=== PATIENT | male | born 1990 | race Caucasian/White ===

== ENCOUNTER 2016-04-27 19:19 | Emergency (ER) | payer OTHER, MEDICARE, MEDICAID ==
--- NOTE | 2016-04-27 19:34 | ER Document Report ---
ED Medical Screen (RME) - General Chief Complaint: Psych Problem Stated Complaint: PSYCH EVAL Time seen by provider: 19:30 Mode of Arrival: Ambulatory Information source: Patient Notes: 25 yo male presents to ed for possible overdose of drugs while in detention. Patient states he took ice and heroine. TRAVEL OUTSIDE OF THE [place] IN LAST 30 DAYS: No - HPI Onset: This afternoon - 5pm swallowed his drugs when police arrested him Onset/Duration: Gradual Quality of pain: No pain Severity: None Pain Level: Denies Associated Symptoms: None Exacerbated by: Denies Relieved by: Denies Similar symptoms previously: Yes Recently seen / treated by doctor: No - Related Data Smoking: Cigarettes - 3-4 Frequency of alcohol use: None Drug Abuse: Heroin, Methamphetamine Allergies/Adverse Reactions: cephalexin monohydrate [From Keflex] Allergy (Verified 04/27/16 19:27) Sulfa (Sulfonamide Antibiotics) Allergy (Verified 04/27/16 19:27) tramadol HCl [From Ultram] Adverse Reaction (Verified 04/27/16 19:27) SEIZURE Past Medical History Renal/ Medical History: Reports: Hx Hydrocele, Hx Kidney Stones GI Medical History: Reports: Hx Hepatitis Musculoskeltal Medical History: Reports Hx Musculoskeletal Trauma Psychiatric Medical History: Reports: Hx Attention Deficit Hyperactivity Disorder, Hx Bipolar Disorder, Hx Depression, Hx Schizophrenia Infectious Medical History: Reports: Hx Hepatitis Past Surgical History: Reports: Hx Testicular Surgery - right hydrocele - Immunizations Immunizations up to date: Yes Hx Diphtheria, Pertussis, Tetanus Vaccination: Yes
[2016-04-27] MEDS ORDERED: HALOPERIDOL DECANOATE INJ 100 MG/1 ML VIAL IM PRN (19:39)
[2016-04-27] MEDS ORDERED: LORAZEPAM INJ 2 MG/1 ML VIAL IM ONE (19:40)
[2016-04-27] MEDS ORDERED: LORAZEPAM INJ 2 MG/1 ML VIAL IV ONE (19:44)
--- NOTE | 2016-04-27 19:44 | ER Document Report ---
ED General <KASSANDRA WALKER - Last Filed: 04/28/16 07:26> - General Mode of Arrival: Ambulatory TRAVEL OUTSIDE OF THE [place] IN LAST 30 DAYS: No <COBY NELSON - Last Filed: 04/28/16 10:53> - General Chief Complaint: Overdose Stated Complaint: OVERDOSE Notes: The patient is a 25-year-old male, past medical history polysubstance abuse, schizophrenia, presents by police after he was found to be exhibiting bizarre behavior. He says he ingested meth and heroin. He did not want to kill himself. Patient is agitated and unable to provide any additional history. (COBY NELSON) - Related Data Allergies/Adverse Reactions: cephalexin monohydrate [From Keflex] Allergy (Verified 04/27/16 19:27) Sulfa (Sulfonamide Antibiotics) Allergy (Verified 04/27/16 19:27) tramadol HCl [From Ultram] Adverse Reaction (Verified 04/27/16 19:27) SEIZURE Past Medical History - General Information source: Patient - Social History Smoking Status: Current Every Day Smoker Frequency of alcohol use: None Drug Abuse: Heroin, Methamphetamine Family History: Reviewed & Not Pertinent, CAD, CVA, DM, Hypertension Patient has suicidal ideation: No Patient has homicidal ideation: No Renal/ Medical History: Reports: Hx Hydrocele, Hx Kidney Stones GI Medical History: Reports: Hx Hepatitis Musculoskeltal Medical History: Reports Hx Musculoskeletal Trauma Psychiatric Medical History: Reports: Hx Attention Deficit Hyperactivity Disorder, Hx Bipolar Disorder, Hx Depression, Hx Schizophrenia Infectious Medical History: Reports: Hx Hepatitis Past Surgical History: Reports: Hx Testicular Surgery - right hydrocele - Immunizations Immunizations up to date: Yes Hx Diphtheria, Pertussis, Tetanus Vaccination: Yes <COBY NELSON - Last Filed: 04/28/16 10:53> Physical Exam <KASSANDRA WALKER - Last Filed: 04/28/16 07:26> <COBY NELSON - Last Filed: 04/28/16 10:53> - Vital signs Vitals: Resp 28 H 04/27/16 19:40 (KASSANDRA WALKER) - Notes Notes: PHYSICAL EXAMINATION: GENERAL: Agitated. Moving all over the bed. HEAD: Atraumatic, normocephalic. EYES: Pupils equal round and reactive to light, extraocular movements intact, sclera anicteric, conjunctiva are normal. ENT: nares patent, oropharynx clear without exudates. Moist mucous membranes. NECK: Normal range of motion, supple without lymphadenopathy LUNGS: Breath sounds clear to auscultation bilaterally and equal. No wheezes rales or rhonchi. HEART: Regular rate and rhythm without murmurs ABDOMEN: Soft, nontender, normoactive bowel sounds. No guarding, no rebound. No masses appreciated. EXTREMITIES: Normal range of motion, no pitting or edema. No cyanosis. NEUROLOGICAL: Cranial nerves grossly intact. Normal speech, normal gait. Normal sensory, motor, and reflex exams. PSYCH: Agitated. Redirectable. SKIN: Warm, Dry, normal turgor, no rashes or lesions noted. (COBY NELSON) Course - Laboratory Result Diagrams: 04/27/16 20:42 04/27/16 20:42 <KASSANDRA WALKER - Last Filed: 04/28/16 07:26> - Laboratory Result Diagrams: 04/27/16 20:42 04/27/16 20:42 - EKG Interpretation by Ia EKG shows normal: Sinus rhythm, [place], Intervals - Prolonged QTc at 473, QRS Complexes - Transfer of Care Care transferred to following provider: Dr. Baron at 21:30. <COBY NELSON - Last Filed: 04/28/16 10:53> - Re-evaluation Re-evalutation: Patient says he only had meth and heroin. He says he is not suicidal. He is acting sympathomimetic. After Ativan, patient has calm down his tachycardia resolved. Will watch until sober and then discharge to police custody. (COBY NELSON) - Vital Signs Vital signs: Temp Pulse Resp BP Pulse Ox 98.0 F 85 16 124/70 95 04/28/16 08:20 04/28/16 08:20 04/28/16 08:20 04/28/16 08:20 04/28/16 08:20 (KASSANDRA WALKER) - Laboratory Laboratory results interpreted by dc: 04/27/16 04/27/16 04/28/16 20:42 20:42 07:23 WBC 11.2 H Calcium 10.3 H AST 125 H ALT 355 H Albumin 5.1 H Urine Ketones 20 H Salicylates < 1.0 L Acetaminophen < 10 L (KASSANDRA WALKER) Discharge <KASSANDRA WALKER - Last Filed: 04/28/16 07:26> <COBY NELSON - Last Filed: 04/28/16 10:53> - Discharge Clinical Impression: Heroin abuse, Methamphetamine abuse Condition: Good Disposition: HOME, SELF-CARE Additional Instructions: NARCOTIC / OPIOD ABUSE: Narcotics and opiods are pain-relieving drugs that are often abused. They are addicting. Narcotics cause euphoria, but it often takes increasing amounts to "feel good" and avoid withdrawal symptoms. Overdose of narcotics causes small pupils, coma, and decreased breathing. It's a common cause of . Purity of street narcotics is unpredictable. Injection of narcotics is risky for abscesses, endocarditis (heart infection), pneumonia, and AIDS. Withdrawal from narcotics causes goose bumps, watery mouth, sweating, nasal congestion, muscle aches, abdominal cramps, vomiting, and diarrhea. There 's often restlessness and confusion. Treatment programs are available, but you must make the decision to quit. Medication (such as clonidine) can be prescribed to control the symptoms of withdrawal. AMPHETAMINE / METHAMPHETAMINE ABUSE: Amphetamines are addicting stimulants. Amphetamines overstimulate the nervous system and give a false feeling of power and mastery. These drugs may be obtained as prescription pills for weight loss, narcolepsy, or attention- deficit disorder. More often they're bought as an illegal street drug, methamphetamine (crank, crystal, speed). Using amphetamines repeatedly can lead to serious medical problems including malnutrition, severe depression, and paranoia. It can take increasing amounts to feel good. Eventually, there will be a "burn out." When you go off amphetamines there is a period of depression that may last for weeks or even months. High doses of amphetamines can cause seizures, confusion, hallucinations, delusions, high blood pressure, muscle damage, heart damage, or sudden . Many times these deadly complications occur even with "normal" doses. Injection of amphetamines is risky for developing abscesses, endocarditis ( heart infection), pneumonia, and AIDS. Withdrawal from amphetamines often causes anxiety, depression, and drug cravings. Some users become paranoid and psychotic. There may be cramps, nausea , and vomiting. Many treatment programs are available, but you must make the decision to quit. Medication can be prescribed to control the symptoms of amphetamine toxicity (beta blockers or benzodiazepines). Withdrawal symptoms may require tranquilizers. INSTRUCTIONS FOR HOME CARE FOLLOWING DRUG OVERDOSAGE: The doctor feels it's safe for you to go home. You will need to be observed. If charcoal and a laxative was given to you, expect some loose black stools soon. Take no medications unless approved by a physician, including alcohol. If drowsy, lie on your stomach or side for sleeping to avoid aspiration if vomiting occurs. Take only liquids by mouth until there is no more nausea. FOR THE OBSERVER: Observe the patient for the next 24 hours and call or go to the hospital if any of the following are noted: prolonged or repeated vomiting, difficulty in arousing, convulsions (seizures or fits), fever, persistent cough, breathing that is too slow or too rapid, or confused or bizarre behavior. If a counselling visit has been arranged, make sure the patient attends. Call the physician or poison control if you have questions. FOLLOW-UP CARE: If you have been referred to a physician for follow-up care, call the physician s office for an appointment as you were instructed or within the next two days. If you experience worsening or a significant change in your symptoms, notify the physician immediately or return to the Emergency Department at any time for re-evaluation. Referrals: CASIMIRO LINDQUIST MD [Primary Care Provider] - Follow up as needed
[2016-04-27 20:55] LABS: ABSOLUTE EOSINOPHILS # (AUTO) 0.1 10^3/uL (0.0-0.6); ABSOLUTE LYMPHOCYTES (AUTO) 2.4 10^3/uL (0.5-4.7); ABSOLUTE MONOCYTES (AUTO) 1.2 10^3/uL (0.1-1.4); ABSOLUTE NEUT (AUTO) 7.5 10^3/uL (1.7-8.2); BASOPHILS % (AUTO) 0.4 % (0-2); HEMATOCRIT 45.8 % (37.9-51.0); HGB HCT DIFFERENCE 2.2; LYMPHOCYTES % (AUTO) 21.3 % (13-45); MEAN CORPUSCULAR HEMOGLOBIN 31.3 pg (27.0-33.4); MEAN CORPUSCULAR VOLUME 89 fl (80-97); MONOCYTES % (AUTO) 10.6 % (3-13); RED BLOOD COUNT 5.12 10^6/uL (4.35-5.55); RED CELL DISTRIBUTION WIDTH 12.6 % (11.5-14.0); SEGMENTED NEUTROPHILS % (AUTO) 66.7 % (42-78); WHITE BLOOD COUNT 11.2 10^3/uL (4.0-10.5)
[2016-04-27 21:11] LABS: ALANINE AMINOTRANSFERASE 355 U/L (21-72); ALBUMIN 5.1 g/dL (3.5-5.0); ALKALINE PHOSPHATASE 82 U/L (38-126); ANION GAP 16 (5-19); ASPARTATE AMINO TRANSFERASE 125 U/L (17-59); BILIRUBIN,TOTAL 1.2 mg/dL (0.2-1.3); BLOOD UREA NITROGEN 16 mg/dL (7-20); CALCIUM 10.3 mg/dL (8.4-10.2); CARBON DIOXIDE 26 mmol/L (22-30); CHLORIDE 100 mmol/L (98-107); CREATININE RESULT 0.89 mg/dL (0.52-1.25); GLUCOSE 78 mg/dL (75-110); POTASSIUM 3.9 mmol/L (3.6-5.0); SODIUM 141.5 mmol/L (137-145); TOTAL PROTEIN 8.1 g/dL (6.3-8.2)
[2016-04-27] MEDS ORDERED: NORMAL SALINE 1000 ML 1,000 ML IV ONE (21:16)
[2016-04-27 21:18] LABS: ALCOHOL < 10 mg/dL (NONE DETECTED)
--- NOTE | 2016-04-28 05:10 | EKG REPORT ---
SEVERITY:- ABNORMAL ECG - SINUS RHYTHM RIGHT ATRIAL ABNORMALITY BORDERLINE PROLONGED QT INTERVAL : Confirmed by: Fito Bowers 28-Apr-2016 05:09:45
[2016-04-28 07:49] LABS: APPEARANCE,URINE CLEAR; BILIRUBIN,URINE NEGATIVE (NEGATIVE); GLUCOSE, URINE NEGATIVE (NEGATIVE); KETONES,URINE 20 mg/dL (NEGATIVE); LEUKOCYTE ESTERASE,URINE NEGATIVE (NEGATIVE); NITRITE,URINE NEGATIVE (NEGATIVE); PROTEIN,URINE NEGATIVE (NEGATIVE); URINE SPECIFIC GRAVITY 1.018; UROBILINOGEN,URINE NEGATIVE mg/dL (<2.0)
[2016-04-28 08:04] LABS: URINE BARBITURATES SCREEN NEGATIVE; URINE METHADONE SCREEN NEGATIVE; URINE PHENCYCLIDINE SCREEN NEGATIVE
[2016-04-28 08:28] VITALS: BP 124/70
== END 2016-04-28 08:23 | disposition home or self-care (01) ==
LOC: ER 19:19
DX: F15.10 Other stimulant abuse, uncomplicated (principal); F11.10 Opioid abuse, uncomplicated; F17.200 Nicotine dependence, unspecified, uncomplicated; Z88.1 Allergy status to other antibiotic agents; Z88.2 Allergy status to sulfonamides
CPT/HCPCS: 93005; 99285; 96361; 96374; 36415; 80307 ×4; 85025; 80053; 81001; 93010; J2060; J7030

== ENCOUNTER 2016-11-01 17:52 | Emergency (ER) | payer MEDICARE, OTHER, MEDICAID ==
[2016-11-01] MEDS ORDERED: LORAZEPAM INJ 2 MG/1 ML VIAL IV ONE ×2 (18:07→19:19)
[2016-11-01] MEDS: NORMAL SALINE 1000 ML 1,000 ML IV PRN ×3 (18:21→22:53)
--- NOTE | 2016-11-01 18:40 | RADIOLOGY REPORT (SQ) ---
EXAM DESCRIPTION: KUB/ABDOMEN (SINGLE VIEW) COMPLETED DATE/TIME: 11/01/2016 6:28 pm REASON FOR STUDY: possible body stuffing COMPARISON: None. NUMBER OF VIEWS: One view. TECHNIQUE: Supine radiographic image of the abdomen acquired. LIMITATIONS: None. FINDINGS: BOWEL GAS PATTERN: Normal bowel gas pattern. No dilated loops. CALCIFICATIONS: No suspicious calcifications. SOFT TISSUES: No gross mass or suggestion of organomegaly. HARDWARE: None in the abdomen. BONES: No acute fracture. No worrisome bone lesions. OTHER: No other significant finding. IMPRESSION: NO RADIOGRAPHIC EVIDENCE FOR ACUTE ABDOMINAL DISEASE. TECHNICAL DOCUMENTATION: JOB ID: [id number] [employer]- All Rights Reserved
[2016-11-01 18:44] LABS: HEMATOCRIT 50.7 % (37.9-51.0); HEMOGLOBIN 16.7 g/dL (13.5-17.0); HGB HCT DIFFERENCE -0.6; MEAN CORPUSCULAR HEMOGLOBIN 30.5 pg (27.0-33.4); MEAN CORPUSCULAR HGB CONC 32.9 g/dL (32.0-36.0); MEAN CORPUSCULAR VOLUME 93 fl (80-97); RED BLOOD COUNT 5.47 10^6/uL (4.35-5.55); RED CELL DISTRIBUTION WIDTH 13.2 % (11.5-14.0); WHITE BLOOD COUNT 28.4 10^3/uL (4.0-10.5)
[2016-11-01 19:00] LABS: ALANINE AMINOTRANSFERASE 72 U/L (21-72); ALKALINE PHOSPHATASE 99 U/L (38-126); ANION GAP 19 (5-19); ASPARTATE AMINO TRANSFERASE 71 U/L (17-59); BAND NEUTROPHILS % (MANUAL) 3 % (3-5); BASOPHILS % (MANUAL) 0 % (0-2); BILIRUBIN,DIRECT 0.5 mg/dL (0.0-0.4); BILIRUBIN,TOTAL 1.5 mg/dL (0.2-1.3); BLOOD UREA NITROGEN 54 mg/dL (7-20); CALCIUM 9.1 mg/dL (8.4-10.2); CARBON DIOXIDE 19 mmol/L (22-30); CHLORIDE 105 mmol/L (98-107); CREATININE RESULT 3.27 mg/dL (0.52-1.25); EOSINOPHILS % (MANUAL) 0 % (0-6); GLUCOSE 83 mg/dL (75-110); LYMPHOCYTES % (MANUAL) 5 % (13-45); POTASSIUM 4.2 mmol/L (3.6-5.0); TOTAL CELLS COUNTED 100; TOTAL PROTEIN 9.2 g/dL (6.3-8.2)
[2016-11-01 19:04] LABS: RBC MORPHOLOGY COMMENT NORMO-CYTIC/CHROMIC; TOXIC GRANULATION SLIGHT
[2016-11-01 19:05] LABS: ALCOHOL < 10 mg/dL (NONE DETECTED)
[2016-11-01] MEDS ORDERED: ZIPRASIDONE MESYLATE INJ/PF 20 MG SDV IM ONE (19:56)
[2016-11-01 20:11] LABS: ADD ON TESTING BLD IN LAB ACKNOWLEDGE
[2016-11-01 20:24] LABS: CREATINE KINASE 978 U/L (55-170)
[2016-11-01] MEDS ORDERED: MORPHINE SULFATE 10 MG/ML INJ IV ONE (20:36)
--- NOTE | 2016-11-01 21:18 | RADIOLOGY REPORT (SQ) ---
EXAM DESCRIPTION: SHOULDER RIGHT 2 OR MORE VIEWS COMPLETED DATE/TIME: 11/01/2016 8:51 pm REASON FOR STUDY: right shoulder pain COMPARISON: None. NUMBER OF VIEWS: Two views. TECHNIQUE: Internal and external rotation images acquired of the right shoulder. LIMITATIONS: None. FINDINGS: MINERALIZATION: Normal. BONES: No acute fracture or dislocation. No worrisome bone lesions. JOINTS: No dislocation. VISUALIZED LUNGS AND RIBS: No pneumothorax. No rib fracture. SOFT TISSUES: No radiopaque foreign body. OTHER: No other significant finding. IMPRESSION: NEGATIVE STUDY OF THE RIGHT SHOULDER. NO RADIOGRAPHIC EVIDENCE OF ACUTE INJURY. TECHNICAL DOCUMENTATION: JOB ID: [id number] [employer]- All Rights Reserved
--- NOTE | 2016-11-01 22:03 | ER Document Report ---
ED Substance Abuse / Acc. OD - General Chief Complaint: Possible Overdose Stated Complaint: POSSIBLE DRUG INGESTION Time Seen by Provider: 11/01/16 18:05 Notes: The patient is a 26-year-old male, past medical history polysubstance abuse, presents by EMS after he was found to be flailing around outside. He keeps changing his stories and told 1 of the EMS that he swallowed a bag of drugs. He denies swallowing any drugs to me and is only complaining about right shoulder pain. EMS provided him with 50 mg IV Benadryl and 5 mg IV Versed. Pt is very agitated on arrival and flailing around the bed. TRAVEL OUTSIDE OF THE [place] IN LAST 30 DAYS: No - Related Data Allergies/Adverse Reactions: cephalexin monohydrate [From Keflex] Allergy (Verified 11/01/16 19:06) Sulfa (Sulfonamide Antibiotics) Allergy (Verified 11/01/16 19:06) tramadol HCl [From [employer]] Adverse Reaction (Verified 11/01/16 19:06) SEIZURE Past Medical History - General Information source: Patient - Social History Smoking Status: Current Every Day Smoker Chew tobacco use (# tins/day): No Drug Abuse: Cocaine, Heroin, Marijuana, Methamphetamine Family History: Reviewed & Not Pertinent, CAD, CVA, DM, Hypertension Renal/ Medical History: Reports: Hx Hydrocele, Hx Kidney Stones GI Medical History: Reports: Hx Hepatitis Musculoskeltal Medical History: Reports Hx Musculoskeletal Trauma Psychiatric Medical History: Reports: Hx Attention Deficit Hyperactivity Disorder, Hx Bipolar Disorder, Hx Depression, Hx Schizophrenia Infectious Medical History: Reports: Hx Hepatitis Past Surgical History: Reports: Hx Testicular Surgery - right hydrocele - Immunizations Immunizations up to date: Yes Hx Diphtheria, Pertussis, Tetanus Vaccination: Yes Review of Systems - Review of Systems Notes: REVIEW OF SYSTEMS: CONSTITUTIONAL: -fevers, -chills EENT: -eye pain, -difficulty swallowing, -nasal congestion CARDIOVASCULAR:-chest pain, -syncope. RESPIRATORY: -cough, -SOB GASTROINTESTINAL: -abdominal pain, - nausea, -vomiting, -diarrhea GENITOURINARY: -dysuria, -hematuria MUSCULOSKELETAL: +right shoulder pain, -back pain, -neck pain SKIN: -rash or skin lesions. HEMATOLOGIC: -easy bruising or bleeding. LYMPHATIC: -swollen, enlarged glands. NEUROLOGICAL: -altered mental status or loss of consciousness, -headache, - neurologic symptoms PSYCHIATRIC: -anxiety, -depression, +drug abuse ALL OTHER SYSTEMS REVIEWED AND NEGATIVE. Physical Exam - Vital signs Vitals: Resp Pulse Ox 29 H 97 11/01/16 18:36 11/01/16 18:36 - Notes Notes: PHYSICAL EXAMINATION: GENERAL: Agitated, flailing around the bed HEAD: Atraumatic, normocephalic. EYES: Dilated pupils, extraocular movements intact, sclera anicteric, conjunctiva are normal. ENT: nares patent, oropharynx clear without exudates. Moist mucous membranes. NECK: Normal range of motion, supple without lymphadenopathy LUNGS: Breath sounds clear to auscultation bilaterally and equal. No wheezes rales or rhonchi. HEART: Tachycardia ABDOMEN: Soft, nontender, normoactive bowel sounds. No guarding, no rebound. No masses appreciated. EXTREMITIES: Normal range of motion, no pitting or edema. No cyanosis. NEUROLOGICAL: Jerky movements, no focal deficits PSYCH: Agitated, denies HI and SI. SKIN: Warm, Dry, normal turgor, no rashes or lesions noted. Course - Re-evaluation Re-evalutation: 11/02/16 03:18 Pt with evidence of methamphetamine, benzo and THC abuse. On lab work, he had a leukocytosis and BREANNA. The leukocytosis is most likely reactive from his severe agitation and agitated delirium. His leukocytosis and creatinine improved on recheck after he was calm. Pt will be discharged home when he has a steady gait with [facility] referral. Denies suicidal or homicidal ideation. Patient counseled about drug abuse. - Vital Signs Vital signs: Temp Pulse Resp BP Pulse Ox 98.6 F 16 107/66 100 11/01/16 23:00 11/02/16 03:00 11/02/16 03:00 11/02/16 03:00 - Laboratory Result Diagrams: 11/02/16 02:52 11/02/16 02:52 Laboratory results interpreted by me: 11/01/16 11/01/16 11/01/16 18:30 18:30 18:30 WBC 28.4 H RBC Hgb Seg Neuts % (Manual) 86 H Lymphocytes % (Manual) 5 L Absolute Neutrophils Abs Neuts (Manual) 25.3 H Absolute Monocytes Abs Monocytes (Manual) 1.7 H Chloride Carbon Dioxide 19 L BUN 54 H Creatinine 3.27 H Est GFR ( Amer) 28 L Est GFR (Non-Af Amer) 23 L Calcium Total Bilirubin 1.5 H Direct Bilirubin 0.5 H AST 71 H Creatine Kinase 978 H Total Protein 9.2 H Albumin Urine Protein Urine Ketones Urine Blood Salicylates < 1.0 L Acetaminophen < 10 L 11/02/16 11/02/16 11/02/16 01:47 02:52 02:52 WBC 17.2 H RBC 4.30 L Hgb 13.2 L D Seg Neuts % (Manual) Lymphocytes % (Manual) Absolute Neutrophils 13.3 H Abs Neuts (Manual) Absolute Monocytes 1.5 H Abs Monocytes (Manual) Chloride 118 H Carbon Dioxide 14 L BUN 33 H D Creatinine 1.31 H Est GFR ( Amer) Est GFR (Non-Af Amer) Calcium 7.3 L Total Bilirubin Direct Bilirubin AST Creatine Kinase 831 H Total Protein 5.6 L Albumin 2.8 L Urine Protein 30 H Urine Ketones 80 H Urine Blood MODERATE H Salicylates Acetaminophen Critical Care Note - Critical Care Note Total time excluding time spent on procedures (mins): 35 Discharge - Discharge Clinical Impression: Polysubstance abuse, Agitation, BREANNA (acute kidney injury) Rhabdomyolysis Qualifiers: Rhabdomyolysis type: traumatic Encounter type: initial encounter Qualified Code (s): T79.6XXA - Traumatic ischemia of muscle, initial encounter Leukocytosis Qualifiers: Leukocytosis type: unspecified Qualified Code(s): D72.829 - Elevated white blood cell count, unspecified Condition: Stable Disposition: HOME, SELF-CARE Additional Instructions: AMPHETAMINE / METHAMPHETAMINE ABUSE: Amphetamines are addicting stimulants. Amphetamines overstimulate the nervous system and give a false feeling of power and mastery. These drugs may be obtained as prescription pills for weight loss, narcolepsy, or attention- deficit disorder. More often they're bought as an illegal street drug, methamphetamine (crank, crystal, speed). Using amphetamines repeatedly can lead to serious medical problems including malnutrition, severe depression, and paranoia. It can take increasing amounts to feel good. Eventually, there will be a "burn out." When you go off amphetamines there is a period of depression that may last for weeks or even months. High doses of amphetamines can cause seizures, confusion, hallucinations, delusions, high blood pressure, muscle damage, heart damage, or sudden . Many times these deadly complications occur even with "normal" doses. Injection of amphetamines is risky for developing abscesses, endocarditis ( heart infection), pneumonia, and AIDS. Withdrawal from amphetamines often causes anxiety, depression, and drug cravings. Some users become paranoid and psychotic. There may be cramps, nausea , and vomiting. Many treatment programs are available, but you must make the decision to quit. Medication can be prescribed to control the symptoms of amphetamine toxicity (beta blockers or benzodiazepines). Withdrawal symptoms may require tranquilizers. OVERDOSE / INGESTION: You have taken more medication than you should have. After your evaluation and care, it is felt that your overdose is not likely to be harmful or of any significant consequences to you and you are being discharged. In the future, you should be careful not to take more medications than what is prescribed for you. Although your overdose does not seem to be of any danger to you at this time, if you develop any unusual or unexpected symptoms after your discharge, you should return to the Emergency Department immediately for re-evaluation. INSTRUCTIONS FOR HOME CARE FOLLOWING DRUG OVERDOSAGE: The doctor feels it's safe for you to go home. You will need to be observed. If charcoal and a laxative was given to you, expect some loose black stools soon. Take no medications unless approved by a physician, including alcohol. If drowsy, lie on your stomach or side for sleeping to avoid aspiration if vomiting occurs. Take only liquids by mouth until there is no more nausea. FOR THE OBSERVER: Observe the patient for the next 24 hours and call or go to the hospital if any of the following are noted: prolonged or repeated vomiting, difficulty in arousing, convulsions (seizures or fits), fever, persistent cough, breathing that is too slow or too rapid, or confused or bizarre behavior. If a counselling visit has been arranged, make sure the patient attends. Call the physician or poison control if you have questions. FOLLOW-UP CARE: If you have been referred to a physician for follow-up care, call the physician s office for an appointment as you were instructed or within the next two days. If you experience worsening or a significant change in your symptoms, notify the physician immediately or return to the Emergency Department at any time for re-evaluation. Referrals: [facility] [Outside] - Follow up as needed
[2016-11-02] MEDS: NORMAL SALINE 1000 ML 1,000 ML IV PRN ×2 (01:47→02:33)
[2016-11-02] MEDS ORDERED: NORMAL SALINE 1000 ML 1,000 ML IV PRN (02:10)
[2016-11-02 02:30] LABS: APPEARANCE,URINE SLIGHTLY-CLOUDY; BILIRUBIN,URINE NEGATIVE (NEGATIVE); GLUCOSE, URINE NEGATIVE (NEGATIVE); KETONES,URINE 80 mg/dL (NEGATIVE); LEUKOCYTE ESTERASE,URINE NEGATIVE (NEGATIVE); NITRITE,URINE NEGATIVE (NEGATIVE); PROTEIN,URINE 30 mg/dL (NEGATIVE); URINE SPECIFIC GRAVITY 1.018; UROBILINOGEN,URINE NEGATIVE mg/dL (<2.0)
[2016-11-02 02:48] LABS: URINE BARBITURATES SCREEN NEGATIVE; URINE METHADONE SCREEN NEGATIVE; URINE OPIATES LOW NEGATIVE; URINE PHENCYCLIDINE SCREEN NEGATIVE
[2016-11-02 02:59] LABS: ABSOLUTE BASOPHILS # (AUTO) 0.1 10^3/uL (0.0-0.2); ABSOLUTE EOSINOPHILS # (AUTO) 0.1 10^3/uL (0.0-0.6); ABSOLUTE LYMPHOCYTES (AUTO) 2.2 10^3/uL (0.5-4.7); ABSOLUTE MONOCYTES (AUTO) 1.5 10^3/uL (0.1-1.4); ABSOLUTE NEUT (AUTO) 13.3 10^3/uL (1.7-8.2); BASOPHILS % (AUTO) 0.7 % (0-2); EOSINOPHILS % (AUTO) 0.4 % (0-6); HGB HCT DIFFERENCE -0.4; MEAN CORPUSCULAR HEMOGLOBIN 30.7 pg (27.0-33.4); MEAN CORPUSCULAR VOLUME 93 fl (80-97); MONOCYTES % (AUTO) 8.9 % (3-13); RED CELL DISTRIBUTION WIDTH 13.3 % (11.5-14.0); WHITE BLOOD COUNT 17.2 10^3/uL (4.0-10.5)
[2016-11-02 03:08] LABS: HEMOGLOBIN 13.2 g/dL (13.5-17.0)
[2016-11-02 03:16] LABS: ALANINE AMINOTRANSFERASE 63 U/L (21-72); ALBUMIN 2.8 g/dL (3.5-5.0); ALKALINE PHOSPHATASE 53 U/L (38-126); ANION GAP 9 (5-19); ASPARTATE AMINO TRANSFERASE 42 U/L (17-59); BILIRUBIN,DIRECT 0.2 mg/dL (0.0-0.4); CALCIUM 7.3 mg/dL (8.4-10.2); CARBON DIOXIDE 14 mmol/L (22-30); CHLORIDE 118 mmol/L (98-107); CREATINE KINASE 831 U/L (55-170); CREATININE RESULT 1.31 mg/dL (0.52-1.25); GLUCOSE 85 mg/dL (75-110); POTASSIUM 4.5 mmol/L (3.6-5.0); SODIUM 141.3 mmol/L (137-145); TOTAL PROTEIN 5.6 g/dL (6.3-8.2)
[2016-11-02 03:30] LABS: BLOOD UREA NITROGEN 33 mg/dL (7-20)
--- NOTE | 2016-11-02 08:13 | EKG REPORT ---
SEVERITY:- ABNORMAL ECG - SINUS TACHYCARDIA LEFT ATRIAL ABNORMALITY BORDERLINE T WAVE ABNORMALITIES PROLONGED QT INTERVAL : Confirmed by: Checo Hoffmann MD 02-Nov-2016 08:13:32
[2016-11-02 14:43] VITALS: BP 105/73
== END 2016-11-02 14:43 | disposition home or self-care (01) ==
LOC: ER 17:52
DX: F13.10 Sedative, hypnotic or anxiolytic abuse, uncomplicated (principal); F15.10 Other stimulant abuse, uncomplicated; F14.10 Cocaine abuse, uncomplicated; F12.10 Cannabis abuse, uncomplicated; F11.10 Opioid abuse, uncomplicated; T79.6XXA Traumatic ischemia of muscle, initial encounter; X58.XXXA Exposure to other specified factors, initial encounter; N17.9 Acute kidney failure, unspecified; D72.829 Elevated white blood cell count, unspecified; M25.511 Pain in right shoulder; R45.1 Restlessness and agitation; F17.200 Nicotine dependence, unspecified, uncomplicated; R00.0 Tachycardia, unspecified; Z88.1 Allergy status to other antibiotic agents; Z88.2 Allergy status to sulfonamides
CPT/HCPCS: 93005; 96376; 99291; 96372; 96374; 36415; 80307 ×5; 82550; 85025; 80053; 81001; 74000; 73030; 93010; G0480; J2060; J3486; J7030 ×2

== ENCOUNTER 2017-01-11 20:05 | Emergency (ER) | payer MEDICARE, MEDICAID ==
[2017-01-11] MEDS ORDERED: MIDAZOLAM 2 MG/2 ML INJ IM ONE (20:25)
[2017-01-11] MEDS ORDERED: HALOPERIDOL LACTATE INJ 5 MG/1 ML VIAL IM ONE (20:25)
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
[2017-01-11 20:30] VITALS: BP 131/96
[2017-01-11] MEDS ORDERED: IBUPROFEN 600 MG TABLET PO ONE (20:53)
--- NOTE | 2017-01-11 20:57 | RADIOLOGY REPORT (SQ) ---
EXAM DESCRIPTION: SHOULDER RIGHT 2 OR MORE VIEWS COMPLETED DATE/TIME: 01/11/2017 8:43 pm REASON FOR STUDY: right shoulder pain COMPARISON: 1916 NUMBER OF VIEWS: Three views. TECHNIQUE: Internal rotation, external rotation, and Y view images acquired of the right shoulder. LIMITATIONS: None. FINDINGS: MINERALIZATION: Normal. BONES: No acute fracture or dislocation. No worrisome bone lesions. JOINTS: No dislocation. VISUALIZED LUNGS AND RIBS: No pneumothorax. No rib fracture. SOFT TISSUES: No radiopaque foreign body. OTHER: No other significant finding. IMPRESSION: NEGATIVE STUDY OF THE RIGHT SHOULDER. NO RADIOGRAPHIC EVIDENCE OF ACUTE INJURY. TECHNICAL DOCUMENTATION: JOB ID: [id number] [employer]- All Rights Reserved
== END 2017-01-11 22:09 | disposition home or self-care (01) ==
LOC: ER 20:05
DX: M25.511 Pain in right shoulder (principal); F11.10 Opioid abuse, uncomplicated; F14.10 Cocaine abuse, uncomplicated; F15.10 Other stimulant abuse, uncomplicated; F17.200 Nicotine dependence, unspecified, uncomplicated; Z88.1 Allergy status to other antibiotic agents; Z88.2 Allergy status to sulfonamides
CPT/HCPCS: 99283; 73030; A9270

== ENCOUNTER 2017-07-22 19:51 | Emergency (ER) | payer MEDICARE, MEDICAID ==
[2017-07-22] MEDS ORDERED: NORMAL SALINE 1000 ML 1,000 ML IV PRN (21:05)
[2017-07-22 21:18] LABS: ABSOLUTE BASOPHILS # (AUTO) 0.1 10^3/uL (0.0-0.2); ABSOLUTE LYMPHOCYTES (AUTO) 1.6 10^3/uL (0.5-4.7); ABSOLUTE MONOCYTES (AUTO) 1.5 10^3/uL (0.1-1.4); ABSOLUTE NEUT (AUTO) 17.2 10^3/uL (1.7-8.2); BASOPHILS % (AUTO) 0.3 % (0-2); HEMOGLOBIN 15.3 g/dL (13.5-17.0); LYMPHOCYTES % (AUTO) 7.7 % (13-45); MEAN CORPUSCULAR HEMOGLOBIN 31.3 pg (27.0-33.4); MEAN CORPUSCULAR HGB CONC 34.1 g/dL (32.0-36.0); MEAN CORPUSCULAR VOLUME 92 fl (80-97); MONOCYTES % (AUTO) 7.3 % (3-13); PLATELET COUNT 267 10^3/uL (150-450); RED CELL DISTRIBUTION WIDTH 12.9 % (11.5-14.0); SEGMENTED NEUTROPHILS % (AUTO) 84.7 % (42-78); TOTAL CELLS COUNTED % (AUTO) 100 %; WHITE BLOOD COUNT 20.3 10^3/uL (4.0-10.5)
[2017-07-22 21:21] LABS: ALANINE AMINOTRANSFERASE 58 U/L (21-72); ALBUMIN 4.9 g/dL (3.5-5.0); ALKALINE PHOSPHATASE 83 U/L (38-126); ANION GAP 13 (5-19); ASPARTATE AMINO TRANSFERASE 71 U/L (17-59); BILIRUBIN,DIRECT 0.3 mg/dL (0.0-0.4); BLOOD UREA NITROGEN 32 mg/dL (7-20); CALCIUM 10.1 mg/dL (8.4-10.2); CARBON DIOXIDE 26 mmol/L (22-30); CHLORIDE 106 mmol/L (98-107); GLUCOSE 84 mg/dL (75-110); POTASSIUM 4.3 mmol/L (3.6-5.0); SODIUM 145.2 mmol/L (137-145); TOTAL PROTEIN 8.3 g/dL (6.3-8.2)
[2017-07-22 21:22] LABS: ACETAMINOPHEN < 10 ug/mL (10-30); ALCOHOL < 10 mg/dL (NONE DETECTED); SALICYLATE < 1.0 mg/dL (2.0-20.0)
--- NOTE | 2017-07-22 23:43 | ER Document Report ---
Addendum entered and electronically signed by AJ MORRIS LCSWA 07/23/17 12:18 : Discharge - Discharge Clinical Impression: Acute kidney injury, Substance abuse with agitation, Opioid use disorder, mild , abuse Opioid intoxication Qualifiers: Complication of substance-induced condition: uncomplicated Qualified Code(s): F11.920 - Opioid use, unspecified with intoxication, uncomplicated Condition: Stable Disposition: HOME, SELF-CARE Additional Instructions: Counseling Services It has been recommended that you seek professional counseling to assist you with the stresses that you are experiencing. Most people at some time in their lives experience personal problems with which they need help. Pride and feeling that one can't be helped keep a lot of people from the benefits of counseling. Follow up care: Your symptoms are congruent with substance use intoxication/ substance use disorder as evidenced by drowsiness, slurred speech, impairment in attention and memory. We discussed substance use treatment options, and provided substance use treatment resources. Based on your mental health evaluation it is our recommendation to seek outpatient treatment services at [facility] as a walk-in. Referrals: [facility] [Provider Group] - Follow up as needed Original Note: ED General - General Mode of Arrival: Medic Information source: Law Enforcement, Emergency Med Personnel Cannot obtain history due to: Other - Agitation TRAVEL OUTSIDE OF THE [place] IN LAST 30 DAYS: No - HPI Onset: Last week - As per the Onset/Duration: Gradual Quality of pain: No pain Severity: None Pain Level: Denies Associated symptoms: denies: Fever, Shortness of breath Exacerbated by: Denies Relieved by: Denies Similar symptoms previously: No Recently seen / treated by doctor: No <ANDRES LUKE - Last Filed: 07/23/17 00:52> <ROBERT WILSON - Last Filed: 07/23/17 06:25> <AJ MORRIS - Last Filed: 07/23/17 12:13> <EDIN PASCAL - Last Filed: 07/23/17 16:17> - General Chief Complaint: Drug Abuse Stated Complaint: PSYCH EVALUATION Notes: This is a 27-year-old man who is brought in by EMS accompanied by the . Patient has a history of meth, crack and heroin abuse and was brought into the emergency room for wandering the streets and being belligerent. reports that he has a history of this in the past. Records at this hospital showed that the patient does have a history of hepatitis C, polysubstance abuse with presentations for agitation, acute kidney injury and leukocytosis in the setting of acute drug intoxication. He presents in similar fashion today. The patient was given Benadryl, Haldol and Versed for agitation. (ANDRES LUKE) - Related Data Allergies/Adverse Reactions: cephalexin monohydrate [From Keflex] Allergy (Verified 11/01/16 19:06) Sulfa (Sulfonamide Antibiotics) Allergy (Verified 11/01/16 19:06) tramadol HCl [From Ultram] Adverse Reaction (Verified 11/01/16 19:06) SEIZURE Past Medical History - General Information source: Patient - Social History Smoking Status: Unknown if Ever Smoked Cigarette use (# per day): No Chew tobacco use (# tins/day): No Smoking Education Provided: No Frequency of alcohol use: UNKNOWN Drug Abuse: Cocaine, Methamphetamine Lives with: Alone Family History: Reviewed & Not Pertinent, CAD, CVA, DM, Hypertension Patient has suicidal ideation: Yes Patient has homicidal ideation: No - UNKNOWN - Past Medical History Cardiac Medical History: Reports: None Pulmonary Medical History: Reports: None Endocrine Medical History: Reports: None Renal/ Medical History: Reports: Hx Hydrocele, Hx Kidney Stones. Denies: Hx Peritoneal Dialysis Malignancy Medical History: Reports None GI Medical History: Reports: Hx Hepatitis Musculoskeltal Medical History: Reports Hx Musculoskeletal Trauma Psychiatric Medical History: Reports: Hx Attention Deficit Hyperactivity Disorder, Hx Bipolar Disorder, Hx Depression, Hx Schizophrenia Infectious Medical History: Reports: Hx Hepatitis Past Surgical History: Reports: Hx Testicular Surgery - right hydrocele - Immunizations Immunizations up to date: Yes Hx Diphtheria, Pertussis, Tetanus Vaccination: Yes <ANDRES LUKE - Last Filed: 07/23/17 00:52> Review of Systems - Review of Systems Constitutional: denies: Chills, Fever EENT: No symptoms reported Cardiovascular: No symptoms reported Respiratory: No symptoms reported Gastrointestinal: No symptoms reported Genitourinary: No symptoms reported Male Genitourinary: No symptoms reported Musculoskeletal: No symptoms reported Skin: No symptoms reported Hematologic/Lymphatic: No symptoms reported Neurological/Psychological: See HPI <ANDRES LUKE - Last Filed: 07/23/17 00:52> Physical Exam <ANDRES LUKE - Last Filed: 07/23/17 00:52> <ROBERT WILSON - Last Filed: 07/23/17 06:25> <AJ MORRIS - Last Filed: 07/23/17 12:13> <EDIN PASCAL - Last Filed: 07/23/17 16:17> - Vital signs Vitals: Temp Pulse Resp BP Pulse Ox 98.3 F 109 H 26 H 93/65 L 96 07/22/17 19:52 07/22/17 19:52 07/22/17 19:52 07/22/17 19:52 07/22/17 19:52 Notes: Physical exam: GENERAL: 27-year-old man, appears agitated, handcuffed to the stretcher. He is not under arrest at this time as reported by the slip dumper who is at the bedside. The patient does not appear intoxicated. He does not appear in any distress. He is afebrile. HEAD: Atraumatic, normocephalic. EYES: Pupils equal round and reactive to light, extraocular movements intact, sclera anicteric, conjunctiva are normal. ENT: TMs normal, nares patent, oropharynx clear without exudates. Moist mucous membranes. NECK: Normal range of motion, supple without obvious mass or JVD. LUNGS: Breath sounds clear to auscultation bilaterally and equal. No wheezes rales or rhonchi. HEART: Regular rate and rhythm without murmurs, rubs or gallops. ABDOMEN: Soft, normoactive bowel sounds. No tenderness to palpation. No guarding, no rebound. No masses appreciated. EXTREMITIES: Normal range of motion, no pitting or edema. No clubbing or cyanosis. NEUROLOGICAL: Cranial nerves II through XII grossly intact. Normal speech, moving all extremities. PSYCH: Normal mood, normal affect. SKIN: Warm, Dry, normal turgor, no rashes or lesions noted. (ANDRES LUKE) Course - Laboratory Result Diagrams: 07/22/17 20:01 07/22/17 20:01 - Diagnostic Test Radiology reviewed: Image reviewed, Reports reviewed - CT of the head shows no acute lesion. Chest x-ray shows no infiltrates. - EKG Interpretation by In Rate: Normal Rhythm: NSR - EKG shows normal sinus rhythm with a ventricular rate of 97, no acute ST-T wave changes <ANDRES LUKE - Last Filed: 07/23/17 00:52> - Laboratory Result Diagrams: 07/22/17 20:01 07/22/17 20:01 <ROBERT WILSON - Last Filed: 07/23/17 06:25> <AJ MORRIS - Last Filed: 07/23/17 12:13> - Laboratory Result Diagrams: 07/22/17 20:01 07/22/17 20:01 <EDIN PASCAL - Last Filed: 07/23/17 16:17> - Re-evaluation Re-evalutation: 07/22/17 23:42 Note: Review of the previous records show that his preventive very similarly in the past. He has been afebrile here and there is no obvious source of infection. I believe his mental status is due to his drug use. He is similarly had leukocytosis in the setting of agitation from drugs in the past as well. The plan will be to observe the patient. He has received IV fluids in the ER. Reassess in the morning. 07/23/17 00:55 (ANDRES LUKE) 07/23/17 06:25 Patient is awake and alert and able answer questions appropriately. He is oriented 3. He does not admit that he is suicidal and as well as speak with psychiatry. He has no further concerns or complaints at this time. (ROBERT WILSON) - Vital Signs Vital signs: Temp Pulse Resp BP Pulse Ox 98.8 F 75 18 114/61 99 07/23/17 11:00 07/23/17 11:00 07/23/17 11:00 07/23/17 11:00 07/23/17 11:00 - Laboratory Laboratory results interpreted by me: 07/22/17 07/22/17 07/23/17 20:01 20:01 00:17 WBC 20.3 H Seg Neutrophils % 84.7 H Lymphocytes % 7.7 L Absolute Neutrophils 17.2 H Absolute Monocytes 1.5 H Sodium 145.2 H BUN 32 H Creatinine 1.77 H Est GFR ( Amer) 56 L Est GFR (Non-Af Amer) 46 L AST 71 H Total Protein 8.3 H Urine Ketones 100 H Salicylates < 1.0 L Acetaminophen < 10 L Discharge <ANDRES LUKE - Last Filed: 07/23/17 00:52> <ROBERT WILSON - Last Filed: 07/23/17 06:25> <AJ MORRIS - Last Filed: 07/23/17 12:13> <EDIN PASCAL - Last Filed: 07/23/17 16:17> - Discharge Clinical Impression: Acute kidney injury, Substance abuse with agitation, Opioid use disorder, mild , abuse Opioid intoxication Qualifiers: Complication of substance-induced condition: uncomplicated Qualified Code(s): F11.920 - Opioid use, unspecified with intoxication, uncomplicated Condition: Stable Disposition: HOME, SELF-CARE Additional Instructions: Counseling Services It has been recommended that you seek professional counseling to assist you with the stresses that you are experiencing. Most people at some time in their lives experience personal problems with which they need help. Pride and feeling that one can't be helped keep a lot of people from the benefits of counseling. Follow up care: Your symptoms are congruent with substance use intoxication/ substance use disorder as evidenced by drowsiness, slurred speech, impairment in attention and memory. We discussed substance use treatment options, and provided substance use treatment resources. Based on your mental health evaluation it is our recommendation to seek outpatient treatment services at [facility] as a walk-in. Referrals: [facility] [Provider Group] - Follow up as needed
--- NOTE | 2017-07-23 00:12 | RADIOLOGY REPORT (SQ) ---
EXAM DESCRIPTION: CT HEAD WITHOUT CLINICAL HISTORY: 27 years Male, ENCEPHALOPATHY COMPARISON: None. TECHNIQUE: No contrast. Coronal and sagittal reformat. This exam was performed according to our departmental dose-optimization program, which includes automated exposure control, adjustment of the mA and/or kV according to patient size and/or use of iterative reconstruction technique. FINDINGS: No hemorrhage or infarct. No mass, mass effect, or midline shift. Brain and extra-axial structures appear intact. IMPRESSION: Normal CT of the head.
[2017-07-23 00:47] LABS: AMORPHOUS SEDIMENT,URINE TRACE /HPF
[2017-07-23 01:04] LABS: URINE BARBITURATES SCREEN NEGATIVE; URINE BENZODIAZEPINES SCREEN UNCONFIRMED POSITIVE; URINE COCAINE SCREEN UNCONFIRMED POSITIVE; URINE MARIJUANA (THC) SCREEN UNCONFIRMED POSITIVE; URINE METHADONE SCREEN NEGATIVE; URINE PHENCYCLIDINE SCREEN NEGATIVE
--- NOTE | 2017-07-23 01:07 | RADIOLOGY REPORT (SQ) ---
EXAM DESCRIPTION: CHEST SINGLE VIEW CLINICAL HISTORY: 27 years Male, leukocytosis COMPARISON: None. NUMBER OF VIEWS/TECHNIQUE: 1/AP LIMITATIONS: Significant rotation. FINDINGS: Normal lung volume, clear parenchyma, normal cardiac silhouette, and intact bony thorax. IMPRESSION: No acute cardiopulmonary findings. Limitation.
[2017-07-23 01:08] LABS: APPEARANCE,URINE CLEAR; BILIRUBIN,URINE NEGATIVE (NEGATIVE); COLOR,URINE YELLOW; GLUCOSE, URINE NEGATIVE (NEGATIVE); KETONES,URINE 100 mg/dL (NEGATIVE); LEUKOCYTE ESTERASE,URINE NEGATIVE (NEGATIVE); NITRITE,URINE NEGATIVE (NEGATIVE); PROTEIN,URINE NEGATIVE (NEGATIVE); URINE SPECIFIC GRAVITY 1.021; UROBILINOGEN,URINE NEGATIVE mg/dL (<2.0)
--- NOTE | 2017-07-23 09:40 | EKG REPORT ---
SEVERITY:- ABNORMAL ECG - SINUS RHYTHM BIATRIAL ABNORMALITIES BORDERLINE PROLONGED QT INTERVAL : Confirmed by: Fito Bowers 23-Jul-2017 09:39:11
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
--- NOTE | 2017-07-23 16:16 | ER Document Report ---
Doctor's Note Notes: 07/23/17 16:13 Medical rounds: Chart reviewed and patient interviewed briefly. Vital signs are acceptable. Laboratory values are remarkable for chronic renal insufficiency, which is not much changed from previous. Also, WBC count is noted to be elevated, but this also is likely chronic. Patient was initially sleeping but was easily awakened. After awakening he was alert, oriented, and cooperative. He verbalizes no specific somatic complaints. He was counseled briefly concerning the importance of good hydration and avoidance of drugs and alcohol. He is encouraged to follow-up with outpatient resources as directed. He is medically stable, and will be discharged when he is cleared by psych.
[2017-07-23 16:34] VITALS: BP 111/77
== END 2017-07-23 16:45 | disposition home or self-care (01) ==
LOC: ER 19:51
DX: N17.9 Acute kidney failure, unspecified (principal); F11.920 Opioid use, unspecified with intoxication, uncomplicated; F19.10 Other psychoactive substance abuse, uncomplicated; Z88.2 Allergy status to sulfonamides; Z87.442 Personal history of urinary calculi; Z86.19 Personal history of other infectious and parasitic diseases
CPT/HCPCS: 93005; 99285; 96360; 96361; 36415; 80307 ×4; 85025; 80053; 81001; 71045; 70450; 93010; J7030

== ENCOUNTER 2017-08-19 13:00 | Emergency (ER) | payer MEDICARE, MEDICAID ==
[2017-08-19] MEDS ORDERED: HALOPERIDOL LACTATE INJ 5 MG/1 ML VIAL IM ONE (13:40)
[2017-08-19] MEDS ORDERED: LORAZEPAM INJ 2 MG/1 ML VIAL IM ONE (13:41)
[2017-08-19] MEDS ORDERED: NORMAL SALINE 1000 ML 1,000 ML IV ONE ×3 (13:42→15:19)
--- NOTE | 2017-08-19 13:48 | ER Document Report ---
ED Psych Disorder / Suicide - General Chief Complaint: Psych Problem Stated Complaint: ALTERED MENTAL STATUS Time Seen by Provider: 08/19/17 13:38 Information source: Patient Notes: Patient is a 27-year-old male with a long past medical history of psychiatric disturbances as well as substance abuse who presents with IVC paperwork from the law enforcement offices secondary to having auditory and visual hallucinations, grandiose delusions, and attempting to walk into traffic. Patient states he last took meth 2 days ago. He denies any other drug abuse other than smoking some marijuana. Patient denies any alcohol ingestion. Patient does state that he hears voices. He is extremely agitated and is difficult to keep a train of thought. TRAVEL OUTSIDE OF THE [place] IN LAST 30 DAYS: No - HPI Patient complains to provider of: Aggression, Agitated Onset: Just prior to arrival Onset was: Sudden Severity: Severe Pain Level: Denies Suicide Risk Factors: Other - See above Normal mood: No Associated symptoms: Aggressive, Agitated, Anxious, Auditory hallucinations, Paranoid Similar symptoms previously: Yes Recently seen / treated by doctor: Yes - Related Data Allergies/Adverse Reactions: cephalexin monohydrate [From Keflex] Allergy (Verified 11/01/16 19:06) Sulfa (Sulfonamide Antibiotics) Allergy (Verified 11/01/16 19:06) tramadol HCl [From Ultra] Adverse Reaction (Verified 11/01/16 19:06) SEIZURE Past Medical History - General Information source: Patient - Social History Smoking Status: Current Every Day Smoker Cigarette use (# per day): Yes Chew tobacco use (# tins/day): No Smoking Education Provided: No Frequency of alcohol use: Occasional Drug Abuse: Other - See above Family History: Reviewed & Not Pertinent, CAD, CVA, DM, Hypertension Patient has suicidal ideation: Yes Patient has homicidal ideation: No Renal/ Medical History: Reports: Hx Hydrocele, Hx Kidney Stones. Denies: Hx Peritoneal Dialysis GI Medical History: Reports: Hx Hepatitis Musculoskeltal Medical History: Reports Hx Musculoskeletal Trauma Psychiatric Medical History: Reports: Hx Attention Deficit Hyperactivity Disorder, Hx Bipolar Disorder, Hx Depression, Hx Schizophrenia Infectious Medical History: Reports: Hx Hepatitis Past Surgical History: Reports: Hx Testicular Surgery - right hydrocele - Immunizations Immunizations up to date: Yes Hx Diphtheria, Pertussis, Tetanus Vaccination: Yes Review of Systems - Review of Systems -: Yes ROS unobtainable due to patient's medical condition Physical Exam - Vital signs Vitals: Resp 34 H 08/19/17 13:51 Notes: Reviewed vital signs and nursing note as charted by RN. CONSTITUTIONAL: Patient is extremely agitated, diaphoretic, follows commands intermittently but is not able to be verbally redirected HEAD: Normocephalic; atraumatic EYES: PERRL; no obvious nystagmus ENT: Normal nose; no rhinorrhea; moist mucous membranes; pharynx without lesions noted NECK: Supple without meningismus; non-tender; no cervical lymphadenopathy, no masses CARD: Tachycardic and regular, no clicks, no rubs, no gallops; symmetric distal pulses RESP: Tachypnea with clear lungs bilaterally ABD/GI: Normal bowel sounds; non-distended; soft, non-tender BACK: The back appears normal and is non-tender to palpation EXT: Normal ROM in all joints; non-tender to palpation; no cyanosis, no effusions, no edema SKIN: Diaphoretic NEURO: Moves all extremities equally; Motor and sensory function intact PSYCH: See above. Course - Re-evaluation Re-evalutation: 08/19/17 13:48 Given the acute side of safety to the patient as well as the staff, patient was placed in restraints. Given my concern about possible development of rhabdomyolysis given the patient's extreme agitation, we will place the patient on the monitor, provide IM Haldol and Ativan, and reassess the patient's mental condition. Patient denies any ingestion of any foreign bodies or substances other than the method he states he took yesterday. Psychiatry evaluation has been ordered. 08/19/17 14:22 EKG shows heart of 114, sinus tachycardia, normal axis, no obvious ST elevation or depression. Minimally prolonged QT interval 08/19/17 14:26 Patient is currently much more sedate currently sleeping. Vital signs are stable with a heart rate that is improved to 100. We will perform a rectal temperature at this time. 08/19/17 15:18 Labs as recorded. CK is 1000. I will provide an additional liter of fluid. Temperature is 97. 08/19/17 18:22 Vital signs have improved. Mental health evaluation could not be performed by [facility] today given the patient's mental status. Second liter fluid has been ordered. Repeat CK is pending. - Vital Signs Vital signs: Temp Pulse Resp BP Pulse Ox 97.4 F 10 L 98/56 L 100 08/19/17 14:49 08/19/17 17:01 08/19/17 17:01 08/19/17 17:01 - Laboratory Result Diagrams: 08/19/17 14:14 08/19/17 14:14 Laboratory results interpreted by me: 08/19/17 08/19/17 14:14 14:14 WBC 17.9 H Seg Neutrophils % 78.6 H Lymphocytes % 9.9 L Absolute Neutrophils 14.1 H Absolute Monocytes 1.8 H BUN 34 H Glucose 74 L Total Bilirubin 1.4 H AST 93 H ALT 175 H Creatine Kinase 1005 H Salicylates < 1.0 L Acetaminophen < 10 L Critical Care Note - Critical Care Note Total time excluding time spent on procedures (mins): 40 Discharge - Discharge Clinical Impression: Drug ingestion Qualifiers: Encounter type: initial encounter Injury intent: undetermined intent Qualified Code(s): T50.904A - Poisoning by unspecified drugs, medicaments and biological substances, undetermined, initial encounter Altered mental status Qualifiers: Altered mental status type: unspecified Qualified Code(s): R41.82 - Altered mental status, unspecified Condition: Fair Disposition: PSYCH HOSP/UNIT
[2017-08-19 14:31] LABS: ABSOLUTE BASOPHILS # (AUTO) 0.2 10^3/uL (0.0-0.2); ABSOLUTE EOSINOPHILS # (AUTO) 0.1 10^3/uL (0.0-0.6); ABSOLUTE LYMPHOCYTES (AUTO) 1.8 10^3/uL (0.5-4.7); ABSOLUTE MONOCYTES (AUTO) 1.8 10^3/uL (0.1-1.4); ABSOLUTE NEUT (AUTO) 14.1 10^3/uL (1.7-8.2); BASOPHILS % (AUTO) 0.8 % (0-2); EOSINOPHILS % (AUTO) 0.6 % (0-6); HEMATOCRIT 44.2 % (37.9-51.0); HEMOGLOBIN 15.4 g/dL (13.5-17.0); LYMPHOCYTES % (AUTO) 9.9 % (13-45); MEAN CORPUSCULAR HEMOGLOBIN 31.6 pg (27.0-33.4); MEAN CORPUSCULAR HGB CONC 34.8 g/dL (32.0-36.0); MEAN CORPUSCULAR VOLUME 91 fl (80-97); MONOCYTES % (AUTO) 10.1 % (3-13); PLATELET COUNT 209 10^3/uL (150-450); RED BLOOD COUNT 4.87 10^6/uL (4.35-5.55); RED CELL DISTRIBUTION WIDTH 13.4 % (11.5-14.0); SEGMENTED NEUTROPHILS % (AUTO) 78.6 % (42-78); TOTAL CELLS COUNTED % (AUTO) 100 %; WHITE BLOOD COUNT 17.9 10^3/uL (4.0-10.5)
[2017-08-19 14:39] LABS: ALANINE AMINOTRANSFERASE 175 U/L (21-72); ALBUMIN 4.8 g/dL (3.5-5.0); ALKALINE PHOSPHATASE 99 U/L (38-126); ANION GAP 15 (5-19); ASPARTATE AMINO TRANSFERASE 93 U/L (17-59); BILIRUBIN,DIRECT 0.4 mg/dL (0.0-0.4); BILIRUBIN,TOTAL 1.4 mg/dL (0.2-1.3); BLOOD UREA NITROGEN 34 mg/dL (7-20); CARBON DIOXIDE 23 mmol/L (22-30); CHLORIDE 103 mmol/L (98-107); CREATINE KINASE 1005 U/L (55-170); GLUCOSE 74 mg/dL (75-110); POTASSIUM 3.8 mmol/L (3.6-5.0); SODIUM 140.7 mmol/L (137-145); TOTAL PROTEIN 7.9 g/dL (6.3-8.2)
[2017-08-19 14:46] LABS: ACETAMINOPHEN < 10 ug/mL (10-30); ALCOHOL < 10 mg/dL (NONE DETECTED); SALICYLATE < 1.0 mg/dL (2.0-20.0)
--- NOTE | 2017-08-19 17:52 | EKG REPORT ---
SEVERITY:- ABNORMAL ECG - SINUS TACHYCARDIA BIATRIAL ABNORMALITIES BORDERLINE PROLONGED QT INTERVAL : Confirmed by: Checo Hoffmann MD 19-Aug-2017 17:51:30
--- NOTE | 2017-08-19 18:47 | PSYCHOLOGICAL NOTE ---
Psych Note - Psych Note Psych Note: Reason for consult: Patient under IVC for running in road Eval: 1600 Final Disposition 1630 Contact Permissions: None Patient is a 27-year-old male. Diagnosis: 304.00 ( F11.20) Opiate use disorder; severe 292.89 (F 11.229) opioid intoxication without perceptual disturbances with the use disorder, severe Impression/plan: Recommendation to rescind involuntary commitment due to patient not meeting criteria [place] GS 122C. Patient is psychiatrically cleared for discharge ( once the physician medically clears patient). Clinician observed patient has significant history of substance abuse disorder to include amphetamines, ( prescription) opioid, and manufactured heroin per patient report and previous interaction with patient. Historically patient will come to the Emergency Department intoxicated, and then discharge while sober. Clinician observed patient is currently intoxicated and stated to staff that he ingested methamphetamine, and is demonstrating symptoms congruent with intoxication. clinician observed historically ( through direct observation and comprehensive chart review) once patient is sober patient denies substance use treatment resources. Recommendation for patient to be picked up by a family member who is sober and is able to care for patient while he is intoxicated. Attending physician not in agreement with plan. Consulted with Dr. Martin regarding the management and care of patient.
[2017-08-19 23:09] LABS: APPEARANCE,URINE CLEAR; BILIRUBIN,URINE NEGATIVE (NEGATIVE); COLOR,URINE YELLOW; GLUCOSE, URINE NEGATIVE (NEGATIVE); KETONES,URINE 80 mg/dL (NEGATIVE); LEUKOCYTE ESTERASE,URINE NEGATIVE (NEGATIVE); NITRITE,URINE NEGATIVE (NEGATIVE); PROTEIN,URINE NEGATIVE (NEGATIVE); URINE SPECIFIC GRAVITY 1.021; UROBILINOGEN,URINE NEGATIVE mg/dL (<2.0)
[2017-08-19 23:23] LABS: URINE BARBITURATES SCREEN UNCONFIRMED POSITIVE; URINE BENZODIAZEPINES SCREEN NEGATIVE; URINE COCAINE SCREEN UNCONFIRMED POSITIVE; URINE MARIJUANA (THC) SCREEN UNCONFIRMED POSITIVE; URINE METHADONE SCREEN NEGATIVE; URINE PHENCYCLIDINE SCREEN NEGATIVE
--- NOTE | 2017-08-20 09:22 | ER Document Report ---
Doctor's Note Notes: 08/20/17 09:22 As the rounding physician for our psychiatric patients, I have reviewed the chart, vitals, lab work. Patient has been examined and noted to be stable, patients presentation is consistant with substance abuse . I am awaiting mental health in put. 08/20/17 09:45
[2017-08-20 10:13] VITALS: BP 117/75
== END 2017-08-20 10:22 | disposition home or self-care (01) ==
LOC: ER 13:00
DX: T50.904A Poisoning by unspecified drugs, medicaments and biological substances, undetermined, initial encounter (principal); F15.222 Other stimulant dependence with intoxication with perceptual disturbance; X58.XXXA Exposure to other specified factors, initial encounter; F17.210 Nicotine dependence, cigarettes, uncomplicated
CPT/HCPCS: 93005; 99285; 96372; 96360; 96361; 36415; 80307 ×4; 82550; 85025; 80053; 81001; 93010; J1630; J2060; J7030

== ENCOUNTER 2017-08-26 22:31 | Emergency (ER) | payer MEDICARE, MEDICAID ==
[2017-08-26] MEDS ORDERED: NORMAL SALINE 1000 ML 1,000 ML IV ONE (23:04)
--- NOTE | 2017-08-26 23:04 | ER Document Report ---
ED General - General Stated Complaint: PSYCH EVAL Time Seen by Provider: 08/26/17 22:33 Cannot obtain history due to: Intoxicated, Altered mental status Notes: Patient is a 27-year-old male well-known to me and to this emergency department who presents sedated after receiving medications from EMS after he was running around outside with minimal clothing on, agitated, violent and combative. He had apparently been using methamphetamine per his family who was on scene. The patient has a history of very similar presentations in the past. The patient is sedated and unable to provide additional meaningful history. TRAVEL OUTSIDE OF THE [place] IN LAST 30 DAYS: No - Related Data Allergies/Adverse Reactions: cephalexin monohydrate [From Keflex] Allergy (Verified 11/01/16 19:06) Sulfa (Sulfonamide Antibiotics) Allergy (Verified 11/01/16 19:06) tramadol HCl [From Ultram] Adverse Reaction (Verified 11/01/16 19:06) SEIZURE Past Medical History - General Information source: Emergency Med Personnel, [facility] Records Cannot obtain history due to: Intoxicated, Altered mental status - Social History Smoking Status: Current Every Day Smoker Frequency of alcohol use: Occasional Drug Abuse: Methamphetamine Lives with: Family Family History: Reviewed & Not Pertinent, CAD, CVA, DM, Hypertension Renal/ Medical History: Reports: Hx Hydrocele, Hx Kidney Stones. Denies: Hx Peritoneal Dialysis GI Medical History: Reports: Hx Hepatitis Musculoskeltal Medical History: Reports Hx Musculoskeletal Trauma Psychiatric Medical History: Reports: Hx Attention Deficit Hyperactivity Disorder, Hx Bipolar Disorder, Hx Depression, Hx Schizophrenia Infectious Medical History: Reports: Hx Hepatitis Past Surgical History: Reports: Hx Testicular Surgery - right hydrocele - Immunizations Immunizations up to date: Yes Hx Diphtheria, Pertussis, Tetanus Vaccination: Yes Review of Systems - Review of Systems -: Yes ROS unobtainable due to patient's medical condition Physical Exam - Vital signs Vitals: Pulse Resp BP Pulse Ox 92 18 107/67 97 08/26/17 22:42 08/26/17 22:42 08/26/17 22:42 08/26/17 22:42 Interpretation: Normal Notes: PHYSICAL EXAMINATION: GENERAL: Lethargic, wakes to loud voice or noxious stimuli. Somewhat cachectic. HEAD: Atraumatic, normocephalic. EYES: Pupils equal round and reactive to light, extraocular movements intact, sclera anicteric, conjunctiva are normal. ENT: nares patent, oropharynx clear without exudates. Moderately dry t mucous membranes. NECK: Supple without lymphadenopathy LUNGS: Breath sounds clear to auscultation bilaterally and equal. No wheezes rales or rhonchi. HEART: Regular rate and rhythm without murmurs ABDOMEN: Soft, nontender, normoactive bowel sounds. No guarding, no rebound. No masses appreciated. EXTREMITIES: No pitting or edema. No cyanosis. NEUROLOGICAL: No focal neurological deficits. Moves all extremities spontaneously and on command. PSYCH: Lethargic and sedated from medications. Wakes to loud voice. SKIN: Warm, Dry, normal turgor, scratches over the right neck Course - Re-evaluation Re-evalutation: 08/26/17 23:03 Patient presents after apparently running around outside after doing meth. The patient was actually agitated, combative, had to be sedated by EMS with haloperidol and Versed which was ordered by me. At time of my assessment the patient is well sedated although awakes to voice and noxious stimuli. He has 2 superficial scratches over his right neck but no additional findings other than appearing more emaciated than the last time I saw him. I am well familiar with this patient and this is consistent with a pattern behavior of drug abuse with associated agitation and violent behaviors. Standard psychiatric screening laboratories will be sent. He will be monitored and provided IV fluids. 08/27/17 00:41 Labs unremarkable. Patient is medically cleared for evaluation and disposition by psychiatry in the morning. - Vital Signs Vital signs: Temp Pulse Resp BP Pulse Ox 92 18 107/67 97 08/26/17 22:42 08/26/17 22:42 08/26/17 22:42 08/26/17 22:42 - Laboratory Result Diagrams: 08/26/17 22:45 08/26/17 22:45 Laboratory results interpreted by me: 08/26/17 08/26/17 22:45 22:45 WBC 12.1 H Lymphocytes % 11.9 L Absolute Neutrophils 9.4 H Sodium 147.0 H BUN 27 H ALT 78 H Salicylates < 1.0 L Acetaminophen < 10 L - EKG Interpretation by Me Additional EKG results interpreted by me: 08/27/17 01:31 Normal sinus rhythm. Rate 82. No ST elevations or depressions. QTC is 496. Discharge - Discharge Clinical Impression: Amphetamine intoxication with perceptual disturbance and moderate to severe use disorder, Agitation, Dehydration, Violent behavior
[2017-08-26 23:06] LABS: ABSOLUTE BASOPHILS # (AUTO) 0.1 10^3/uL (0.0-0.2); ABSOLUTE EOSINOPHILS # (AUTO) 0.1 10^3/uL (0.0-0.6); ABSOLUTE LYMPHOCYTES (AUTO) 1.4 10^3/uL (0.5-4.7); ABSOLUTE NEUT (AUTO) 9.4 10^3/uL (1.7-8.2); EOSINOPHILS % (AUTO) 0.6 % (0-6); HEMATOCRIT 43.1 % (37.9-51.0); HEMOGLOBIN 14.8 g/dL (13.5-17.0); LYMPHOCYTES % (AUTO) 11.9 % (13-45); MEAN CORPUSCULAR HEMOGLOBIN 30.9 pg (27.0-33.4); MEAN CORPUSCULAR HGB CONC 34.4 g/dL (32.0-36.0); MEAN CORPUSCULAR VOLUME 90 fl (80-97); MONOCYTES % (AUTO) 8.6 % (3-13); PLATELET COUNT 235 10^3/uL (150-450); RED BLOOD COUNT 4.81 10^6/uL (4.35-5.55); SEGMENTED NEUTROPHILS % (AUTO) 77.9 % (42-78); TOTAL CELLS COUNTED % (AUTO) 100 %; WHITE BLOOD COUNT 12.1 10^3/uL (4.0-10.5)
[2017-08-26 23:16] LABS: ALANINE AMINOTRANSFERASE 78 U/L (21-72); ALBUMIN 4.4 g/dL (3.5-5.0); ALKALINE PHOSPHATASE 67 U/L (38-126); ANION GAP 13 (5-19); ASPARTATE AMINO TRANSFERASE 48 U/L (17-59); BILIRUBIN,DIRECT 0.3 mg/dL (0.0-0.4); BILIRUBIN,TOTAL 0.5 mg/dL (0.2-1.3); BLOOD UREA NITROGEN 27 mg/dL (7-20); CALCIUM 9.7 mg/dL (8.4-10.2); CARBON DIOXIDE 27 mmol/L (22-30); CHLORIDE 107 mmol/L (98-107); GLUCOSE 84 mg/dL (75-110); POTASSIUM 3.7 mmol/L (3.6-5.0); TOTAL PROTEIN 7.5 g/dL (6.3-8.2)
[2017-08-26 23:19] LABS: ACETAMINOPHEN < 10 ug/mL (10-30); ALCOHOL < 10 mg/dL (NONE DETECTED); SALICYLATE < 1.0 mg/dL (2.0-20.0)
--- NOTE | 2017-08-26 23:54 | EKG REPORT ---
SEVERITY:- ABNORMAL ECG - SINUS ARRHYTHMIA, RATE 63-92 PROLONGED QT INTERVAL : Confirmed by: Fito Bowers 26-Aug-2017 23:54:11
--- NOTE | 2017-08-27 09:40 | ER Document Report ---
Doctor's Note Notes: 08/27/17 09:39 This is a 27-year-old man with a history of methamphetamine abuse who was found by EMS to be agitated, violent and combative in the setting of methamphetamine use. The patient was sedated with Haldol and a benzodiazepine by EMS and brought into the emergency room last night because of this erratic behavior. The patient has been observed in the emergency room since then. His labs and vital signs have been stable. His EKG showed a QTC of 496 (not significantly changed from an EKG performed April 14, 2016). He was medically cleared for psychiatric evaluation. On physical exam, the patient is easily arousable and he has eaten his breakfast this morning. Physical exam is essentially unremarkable. 08/27/17 09:50 08/27/17 11:59 Note: He is been seen and cleared by psychiatry. The patient does express some desire for drug rehab. We will have him follow[facility]up with [facility] today upon discharge from the ER. They have been contacted and the plans are to meet the patient upon discharge.
--- NOTE | 2017-08-27 11:54 | PSYCHOLOGICAL NOTE ---
Psych Note - Psych Note Psych Note: Reason for evaluation: Substance abuse/intoxication Contact Permissions: None Patient is a 27-year-old male. Patient reports that he called the ambulance because his stomach was "fucked up". Patient reports he was masturbating and when he "cummed" he felt a shooting pain go up his stomach and stated he was scared. Patient reports that he uses methamphetamine and other drugs and the drugs do not cause his stomach to feel that way. Patient reports that he feels he is the one that messed up his stomach and now that he cannot masturbate he wants to get the detox and help to stop using drugs. Patient reports he physically feels bad and is not sure what is going on with his body. Patient reports he wants change. Patient reports that he will contact [facility] to get set up with going to a detox facility. Patient reports that he wants to eat. Diagnosis: 304.40 (F 15.20) stimulant use disorder severe amphetamine type substance ( per patient report) 304.40(F14.20) stimulant use disorder severe Cocaine ( per patient report) Impression/Plan: Recommendation to rescind involuntary commitment due to patient not meeting criteria [place] GS 1202C. Patient denied SI/HI and is not currently experiencing psychosis. Patient is psychiatrically cleared. Clinician observed through direct observation and comprehensive chart review patient has a history of substance abuse per his report as well. Clinician observed patient is requesting substance abuse treatment which he has not previously before. Resources were provided to patient for a warm hand off to [facility]. [facility] were notified patient would be contacting them upon discharge. Attending physician in agreement with plan and disposition. Consulted with Dr. Martin regarding the management and care of patient.
[2017-08-27 13:23] VITALS: BP 105/60
== END 2017-08-27 13:22 | disposition home or self-care (01) ==
LOC: ER 22:31
DX: F15.122 Other stimulant abuse with intoxication with perceptual disturbance (principal); R45.1 Restlessness and agitation; E86.0 Dehydration; R45.6 Violent behavior; R53.83 Other fatigue; F17.200 Nicotine dependence, unspecified, uncomplicated; Z88.2 Allergy status to sulfonamides; Z88.6 Allergy status to analgesic agent
CPT/HCPCS: 93005; 99285; 96360; 36415; 80307 ×3; 85025; 80053; 93010; J7030

== ENCOUNTER 2017-09-06 18:20 | Emergency (ER) | payer MEDICARE, MEDICAID ==
[2017-09-06] MEDS ORDERED: HALOPERIDOL LACTATE INJ 5 MG/1 ML VIAL IM ONE (19:07)
[2017-09-06] MEDS ORDERED: LORAZEPAM INJ 2 MG/1 ML VIAL IM ONE (19:07)
--- NOTE | 2017-09-06 20:43 | ER Document Report ---
ED General - General Chief Complaint: Medical Clearance Stated Complaint: MEDICAL CLEARANCE Time Seen by Provider: 09/06/17 19:00 Information source: Law Enforcement TRAVEL OUTSIDE OF THE [place] IN LAST 30 DAYS: No - HPI Patient complains to provider of: brought here from senior living for evaluation - Related Data Allergies/Adverse Reactions: cephalexin monohydrate [From Keflex] Allergy (Verified 11/01/16 19:06) Sulfa (Sulfonamide Antibiotics) Allergy (Verified 11/01/16 19:06) tramadol HCl [From Ultram] Adverse Reaction (Verified 11/01/16 19:06) SEIZURE Past Medical History - General Information source: [facility] Records - Social History Smoking Status: Current Some Day Smoker Drug Abuse: Cocaine, Marijuana, Methamphetamine Family History: Reviewed & Not Pertinent, CAD, CVA, DM, Hypertension Patient has suicidal ideation: No Patient has homicidal ideation: No Renal/ Medical History: Reports: Hx Hydrocele, Hx Kidney Stones. Denies: Hx Peritoneal Dialysis GI Medical History: Reports: Hx Hepatitis Musculoskeltal Medical History: Reports Hx Musculoskeletal Trauma Psychiatric Medical History: Reports: Hx Attention Deficit Hyperactivity Disorder, Hx Bipolar Disorder, Hx Depression, Hx Schizophrenia Infectious Medical History: Reports: Hx Hepatitis Past Surgical History: Reports: Hx Testicular Surgery - right hydrocele - Immunizations Immunizations up to date: Yes Hx Diphtheria, Pertussis, Tetanus Vaccination: Yes Review of Systems - Review of Systems -: Yes ROS unobtainable due to patient's medical condition Physical Exam - Vital signs Vitals: Pulse Ox 95 09/06/17 19:39 - Notes Notes: PHYSICAL EXAMINATION: GENERAL: Patient disheveled with jerking movements of upper and lower extremities. He is an orange jumpsuit sitting in bed to please offices in the same room and handcuffs on HEAD: Atraumatic, normocephalic. EYES: Pupils equal round and reactive to light, extraocular movements intact, sclera anicteric, conjunctiva are normal. ENT: Nares patent. Moist mucous membranes. NECK: Normal range of motion LUNGS: Breath sounds clear to auscultation bilaterally and equal. No wheezes rales or rhonchi. HEART: Regular rate and rhythm without murmurs ABDOMEN: Soft, nontender, nondistended abdomen. No guarding, no rebound. No masses appreciated. Musculoskeletal: Normal range of motion, no pitting or edema. No cyanosis. NEUROLOGICAL: Agitated. Moving all extremities spontaneously. SKIN: Warm, Dry, normal turgor, no rashes or lesions noted. Course - Re-evaluation Re-evalutation: 09/06/17 20:41 Please now states that the patient has been cleared by the lead cashier for follow-up in Court. He moved to bed 10 so we can keep eyes on him. 09/07/17 02:21 Labs- All tests 24 hr 09/06/17 09/06/17 20:26 20:26 WBC 18.3 H RBC 4.65 Hgb 14.4 Hct 42.1 MCV 90 MCH 31.0 MCHC 34.3 RDW 13.6 Plt Count 343 Sodium 139.9 Potassium 3.7 Chloride 98 Carbon Dioxide 23 Anion Gap 19 BUN 33 H Creatinine 0.93 Est GFR ( Amer) > 60 Est GFR (Non-Af Amer) > 60 Glucose 89 Calcium 10.1 Total Bilirubin 0.4 Direct Bilirubin 0.4 Neonat Total Bilirubin Not Reportable Neonat Direct Bilirubin Not Reportable Neonat Indirect Bili Not Reportable AST 85 H ALT 132 H Alkaline Phosphatase 84 Total Protein 8.2 Albumin 4.8 09/07/17 02:38 Patient is ambulatory without dysfunction. Denies SI. - Vital Signs Vital signs: Temp Pulse Resp BP Pulse Ox 78 16 137/78 H 97 09/07/17 02:43 09/07/17 02:43 09/07/17 02:43 09/07/17 02:43 - Laboratory Result Diagrams: 09/06/17 20:26 09/06/17 20:26 Laboratory results interpreted by me: 09/06/17 09/06/17 20:26 20:26 WBC 18.3 H BUN 33 H AST 85 H ALT 132 H Discharge - Discharge Clinical Impression: Drug abuse Condition: Stable Disposition: HOME, SELF-CARE Additional Instructions: Additional Instructions: Ampetamine Abuse Amphetamines are addicting stimulants. Amphetamines overstimulate the nervous system and give a false feeling of power and mastery. These drugs may be obtained as prescription pills for weight loss, narcolepsy, or attention- deficit disorder. More often they're bought as an illegal street drug, methamphetamine (crank, crystal, speed). Using amphetamines repeatedly can lead to serious medical problems including malnutrition, severe depression, and paranoia. It can take increasing amounts to feel good. Eventually, there will be a "burn out." When you go off amphetamines there is a period of depression that may last for weeks or even months. High doses of amphetamines can cause seizures, confusion, hallucinations, delusions, high blood pressure, muscle damage, heart damage, or sudden . Many times these deadly complications occur even with "normal" doses. Injection of amphetamines is risky for abscesses, endocarditis (heart infection), pneumonia, and AIDS. Withdrawal from amphetamines often causes anxiety, depression, and drug cravings. Some users become paranoid and psychotic. There may be cramps, nausea , and vomiting. Many treatment programs are available, but you must make the decision to quit. Medication can be prescribed to control the symptoms of amphetamine toxicity (beta blockers or benzodiazepines). Withdrawal symptoms may require tranquilizers. Cocaine Abuse Cocaine causes many dangerous medical problems. Problems can occur even with "usual" amounts. Cocaine affects judgement, creating a sense of invulnerability. Cocaine users often make bad decisions that seem "great" at the time. Most cocaine users eventually will be hurt by bad job performance, damaged personal relations, crime, and unsafe sexual practices. Toxic effects of cocaine can include seizures, hallucinations, delusions, high blood pressure, heart damage, or sudden . There's always the risk of a "bad batch." But heart attacks, brain hemorrhages, or cardiac arrest can occur unpredictably even with "normal" use. Injection of cocaine is risky for abscesses, endocarditis (heart infection) , pneumonia, and AIDS. Withdrawal from cocaine often causes anxiety and drug cravings. Some users become paranoid and psychotic. Many treatment programs are available, but you must make the decision to quit. Medication can be prescribed to control the symptoms of cocaine toxicity (beta blockers or benzodiazepines). Withdrawal symptoms may require tranquilizers. Counseling Services It has been recommended that you seek professional counseling to assist you with the stresses that you are experiencing. Most people at some time in their lives experience personal problems with which they need help. Pride and feeling that one can't be helped keep a lot of people from the benefits of counseling. Follow up care: While in the emergency department you received a mental health assessment, during assessment you mentioned wanting to get resources for detox and substance use therapy. We are recommending you follow-up with [facility] mobile crisis management team so they can assist you in applying to detox/facilities that assist with substance use disorders. There are programs that are outpatient and intensive which meet 3 times a week called substance abuse intensive outpatient therapy, please discuss this program with your mobile crisis management worker. Referrals: Referrals: [facility] [Provider Group] - Follow up in 3-5 days [facility] [Provider Group] - Follow up in 3-5 days
[2017-09-06 20:44] LABS: HEMATOCRIT 42.1 % (37.9-51.0); HEMOGLOBIN 14.4 g/dL (13.5-17.0); MEAN CORPUSCULAR HGB CONC 34.3 g/dL (32.0-36.0); MEAN CORPUSCULAR VOLUME 90 fl (80-97); PLATELET COUNT 343 10^3/uL (150-450); RED BLOOD COUNT 4.65 10^6/uL (4.35-5.55); RED CELL DISTRIBUTION WIDTH 13.6 % (11.5-14.0); WHITE BLOOD COUNT 18.3 10^3/uL (4.0-10.5)
[2017-09-06 20:56] LABS: ALANINE AMINOTRANSFERASE 132 U/L (21-72); ALBUMIN 4.8 g/dL (3.5-5.0); ALKALINE PHOSPHATASE 84 U/L (38-126); ANION GAP 19 (5-19); ASPARTATE AMINO TRANSFERASE 85 U/L (17-59); BILIRUBIN,DIRECT 0.4 mg/dL (0.0-0.4); BILIRUBIN,TOTAL 0.4 mg/dL (0.2-1.3); BLOOD UREA NITROGEN 33 mg/dL (7-20); CALCIUM 10.1 mg/dL (8.4-10.2); CARBON DIOXIDE 23 mmol/L (22-30); CHLORIDE 98 mmol/L (98-107); GLUCOSE 89 mg/dL (75-110); POTASSIUM 3.7 mmol/L (3.6-5.0); SODIUM 139.9 mmol/L (137-145); TOTAL PROTEIN 8.2 g/dL (6.3-8.2)
[2017-09-06] MEDS ORDERED: NORMAL SALINE 1000 ML 1,000 ML IV ONE (22:58)
--- NOTE | 2017-09-06 23:06 | EKG REPORT ---
SEVERITY:- ABNORMAL ECG - SINUS TACHYCARDIA PROLONGED QT INTERVAL : Confirmed by: Fito Bowers 06-Sep-2017 20:06:15
[2017-09-07 02:44] VITALS: BP 137/78
== END 2017-09-07 02:44 | disposition home or self-care (01) ==
LOC: ER 18:20
DX: F14.10 Cocaine abuse, uncomplicated (principal); F15.10 Other stimulant abuse, uncomplicated; F12.10 Cannabis abuse, uncomplicated; F17.200 Nicotine dependence, unspecified, uncomplicated; Z88.1 Allergy status to other antibiotic agents; Z88.2 Allergy status to sulfonamides
CPT/HCPCS: 93005; 99284; 96372; 96360; 36415; 85027; 80053; 93010; J1630; J2060; J7030

== ENCOUNTER 2017-09-16 19:33 | Inpatient (IN) | payer MEDICARE, MEDICAID ==
[2017-09-16] MEDS ORDERED: MIDAZOLAM 2 MG/2 ML INJ ONE (19:49)
[2017-09-16] MEDS ORDERED: HALOPERIDOL LACTATE INJ 5 MG/1 ML VIAL ONE (19:49)
[2017-09-16] MEDS ORDERED: MIDAZOLAM 2 MG/2 ML INJ IM ONE (19:59)
[2017-09-16] MEDS ORDERED: HALOPERIDOL LACTATE INJ 5 MG/1 ML VIAL IM ONE (19:59)
[2017-09-16] MEDS ORDERED: NORMAL SALINE 1000 ML 1,000 ML IV ONE (20:03)
--- NOTE | 2017-09-16 20:08 | ER Document Report ---
ED General - General Stated Complaint: POSSIBLE SUBSTANCE WITHDRAWL Time Seen by Provider: 09/16/17 19:37 Cannot obtain history due to: Intoxicated, Uncooperative Notes: Patient is a 27-year-old male well-known to me history of polysubstance abuse and frequent visits to the emergency department for the same. He arrives by EMS to the agitated, combative, apparently has been using amphetamine, cocaine and marijuana today. This is identical to his previous presentations of intoxication sympathomimetic drugs with associated hyperagitation and delirium. History is able to maintain secondary to the patient's agitated status. TRAVEL OUTSIDE OF THE [place] IN LAST 30 DAYS: No - Related Data Allergies/Adverse Reactions: cephalexin monohydrate [From Keflex] Allergy (Verified 11/01/16 19:06) Sulfa (Sulfonamide Antibiotics) Allergy (Verified 11/01/16 19:06) tramadol HCl [From Ultram] Adverse Reaction (Verified 11/01/16 19:06) SEIZURE Past Medical History - General Information source: Emergency Med Personnel, [facility] Records Cannot obtain history due to: Intoxicated, Uncooperative - Social History Smoking Status: Current Every Day Smoker Frequency of alcohol use: Occasional Drug Abuse: Cocaine, Heroin, Marijuana, Methamphetamine Lives with: Family Family History: Reviewed & Not Pertinent, CAD, CVA, DM, Hypertension Renal/ Medical History: Reports: Hx Hydrocele, Hx Kidney Stones. Denies: Hx Peritoneal Dialysis GI Medical History: Reports: Hx Hepatitis Musculoskeltal Medical History: Reports Hx Musculoskeletal Trauma Psychiatric Medical History: Reports: Hx Attention Deficit Hyperactivity Disorder, Hx Bipolar Disorder, Hx Depression, Hx Schizophrenia Infectious Medical History: Reports: Hx Hepatitis Past Surgical History: Reports: Hx Testicular Surgery - right hydrocele - Immunizations Immunizations up to date: Yes Hx Diphtheria, Pertussis, Tetanus Vaccination: Yes Review of Systems - Review of Systems -: Yes ROS unobtainable due to patient's medical condition Physical Exam - Vital signs Vitals: Resp 37 H 09/16/17 19:50 Interpretation: Tachycardic, Tachypneic Notes: PHYSICAL EXAMINATION: GENERAL: Agitated, combative, fighting staff HEAD: Atraumatic, normocephalic. EYES: Pupils equal round and reactive to light, extraocular movements intact, sclera anicteric, conjunctiva are normal. ENT: nares patent, oropharynx clear without exudates. Moderately dry mucous membranes. NECK: Normal range of motion, supple without lymphadenopathy LUNGS: Breath sounds clear to auscultation bilaterally and equal. No wheezes rales or rhonchi. HEART: Regular tachycardia without murmurs ABDOMEN: Soft, nontender, normoactive bowel sounds. No guarding, no rebound. No masses appreciated. EXTREMITIES: Normal range of motion, no pitting or edema. No cyanosis. NEUROLOGICAL: No focal neurological deficits. Moves all extremities spontaneously PSYCH: Agitated, combative SKIN: Warm, Dry, normal turgor, no rashes or lesions noted. Course - Re-evaluation Re-evalutation: 09/16/17 1900 Patient presents extremely agitated, combative, requires restraints for his safety of staff. The patient is obviously intoxicated on methamphetamine and/ or cocaine. He attempted to eat a bag of marijuana in the emergency department. 10 mg of haloperidol and 2 mg of midazolam were administered to calm the patient with appropriate sedation. Patient was placed on night monitor. Fluids will be initiated as the patient is at risk for exertional rhabdomyolysis. We will release the restraints as soon as the patient is persistently calm and no longer danger to himself. Will obtain basic laboratories, EKG and reassess the patient. [facility] has been contacted to remove the marijuana from the hospital campus. 2200-patient is calm, sedated, out of restraints. 09/17/17 03:18 Patient continues to be very well sedated. He was released from restraints almost immediately after they were placed. He remains on night monitor vitals within normal limits. Laboratories do show findings consistent acute renal failure in the setting of likely exertional rhabdomyolysis. His CK is elevated. He has received IV fluids and will be started on a second liter of IV fluids at this time as well as maintenance fluids. I have discussed this case with the hospitalist for admission given his renal failure in association with his CK elevation and the fact that he has continued to fail to urinate. - Vital Signs Vital signs: Temp Pulse Resp BP Pulse Ox 12 108/69 99 09/17/17 01:31 09/17/17 01:31 09/17/17 01:31 - Laboratory Result Diagrams: 09/16/17 21:07 09/16/17 21:07 Laboratory results interpreted by me: 09/16/17 09/16/17 21:07 21:07 WBC 15.2 H Absolute Neutrophils 11.3 H Absolute Monocytes 1.8 H Carbon Dioxide 19 L Anion Gap 22 H BUN 51 H Creatinine 3.18 H Est GFR ( Amer) 28 L Est GFR (Non-Af Amer) 23 L AST 69 H ALT 87 H Creatine Kinase 1244 H Salicylates < 1.0 L Acetaminophen < 10 L - EKG Interpretation by Me Additional EKG results interpreted by me: 09/17/17 03:23 Sinus rhythm. Rate 86. No ST elevations or depressions. QTC is 493. Discharge - Discharge Clinical Impression: Prerenal azotemia, Polysubstance abuse, Agitation Acute renal failure Qualifiers: Acute renal failure type: unspecified Qualified Code(s): N17.9 - Acute kidney failure, unspecified Condition: Fair Disposition: ADMITTED OBSERVATION Admitting Provider: Hospitalist Unit Admitted: Telemetry
[2017-09-16 21:19] LABS: ABSOLUTE MONOCYTES (AUTO) 1.8 10^3/uL (0.1-1.4); ABSOLUTE NEUT (AUTO) 11.3 10^3/uL (1.7-8.2); BASOPHILS % (AUTO) 0.2 % (0-2); EOSINOPHILS % (AUTO) 0.1 % (0-6); HEMATOCRIT 45.4 % (37.9-51.0); HEMOGLOBIN 15.7 g/dL (13.5-17.0); LYMPHOCYTES % (AUTO) 13.2 % (13-45); MEAN CORPUSCULAR HGB CONC 34.6 g/dL (32.0-36.0); MEAN CORPUSCULAR VOLUME 90 fl (80-97); PLATELET COUNT 324 10^3/uL (150-450); RED BLOOD COUNT 5.07 10^6/uL (4.35-5.55); RED CELL DISTRIBUTION WIDTH 13.9 % (11.5-14.0); SEGMENTED NEUTROPHILS % (AUTO) 74.5 % (42-78); TOTAL CELLS COUNTED % (AUTO) 100 %; WHITE BLOOD COUNT 15.2 10^3/uL (4.0-10.5)
[2017-09-16 21:38] LABS: ALANINE AMINOTRANSFERASE 87 U/L (21-72); ALBUMIN 4.8 g/dL (3.5-5.0); ALKALINE PHOSPHATASE 83 U/L (38-126); ASPARTATE AMINO TRANSFERASE 69 U/L (17-59); BILIRUBIN,DIRECT 0.4 mg/dL (0.0-0.4); BILIRUBIN,TOTAL 0.6 mg/dL (0.2-1.3); BLOOD UREA NITROGEN 51 mg/dL (7-20); CALCIUM 9.5 mg/dL (8.4-10.2); CARBON DIOXIDE 19 mmol/L (22-30); CHLORIDE 98 mmol/L (98-107); CREATINE KINASE 1244 U/L (55-170); GLUCOSE 108 mg/dL (75-110); SODIUM 138.5 mmol/L (137-145); TOTAL PROTEIN 7.9 g/dL (6.3-8.2)
[2017-09-16 21:39] LABS: ACETAMINOPHEN < 10 ug/mL (10-30); ALCOHOL < 10 mg/dL (NONE DETECTED); ANION GAP 22 (5-19); SALICYLATE < 1.0 mg/dL (2.0-20.0)
--- NOTE | 2017-09-16 23:25 | EKG REPORT ---
SEVERITY:- ABNORMAL ECG - SINUS RHYTHM BIATRIAL ABNORMALITIES PROLONGED QT INTERVAL : Confirmed by: Checo Hoffmann MD 16-Sep-2017 23:23:34
[2017-09-17] MEDS ORDERED: RINGERS SOLUTION,LACTATED 1,000 ML IV ONE ×2 (03:18→03:19)
[2017-09-17] MEDS ORDERED: MAGNESIUM HYDROXIDE SUSP 30 ML UDCUP PO PRN (03:26)
[2017-09-17] MEDS ORDERED: IPRATROPIUM/ALBUTEROL 0.5-2.5 MG/3 ML AMPUL NEB PRN (03:26)
[2017-09-17] MEDS ORDERED: ACETAMINOPHEN 325 MG TABLET PO PRN (03:26)
[2017-09-17] MEDS: NORMAL SALINE 1000 ML 1,000 ML IV PRN ×3 (05:29→14:30)
[2017-09-17] MEDS ORDERED: LORAZEPAM INJ 2 MG/1 ML VIAL IV PRN (05:32)
[2017-09-17] MEDS: HEPARIN SOD (PORCINE) 5,000 UNIT/ML 1 ML SYRINGE SUBCUT SCH ×3 (06:17→22:52)
[2017-09-17] MEDS: DIAZEPAM 5 MG TABLET PO SCH ×3 (06:17→22:41)
[2017-09-17 07:10] LABS: APPEARANCE,URINE SLIGHTLY-CLOUDY; BILIRUBIN,URINE NEGATIVE (NEGATIVE); COLOR,URINE YELLOW; GLUCOSE, URINE NEGATIVE (NEGATIVE); KETONES,URINE 20 mg/dL (NEGATIVE); LEUKOCYTE ESTERASE,URINE NEGATIVE (NEGATIVE); NITRITE,URINE NEGATIVE (NEGATIVE); PROTEIN,URINE NEGATIVE (NEGATIVE); URINE SPECIFIC GRAVITY 1.021; UROBILINOGEN,URINE NEGATIVE mg/dL (<2.0)
[2017-09-17 07:31] LABS: URINE COCAINE SCREEN NEGATIVE; URINE METHADONE SCREEN NEGATIVE; URINE PHENCYCLIDINE SCREEN NEGATIVE
--- NOTE | 2017-09-17 07:31 | PDOC H&P ---
History of Present Illness Admission Date/PCP: 09/17/17 03:28 Patient complains of: Agitation History of Present Illness: JOSE ROY is a 27 year old male with history of polysubstance abuse of cocaine and methamphetamine, marijuana and heroin presenting with agitation and combativeness requiring sedation. He is found to have acute renal failure and rhabdomyolysis and referred to the hospitalist for admission. The patient is sedated and unable to provide meaningful history. Past Medical History GI Medical History: Reports: Hepatitis Psychiatric Medical History: Reports: Attention Deficit Hyperactivity Disorder, Bipolar Disorder, Depression, Substance Abuse Social History Information Source: Patient, [facility] Records Lives with: Family Smoking Status: Current Every Day Smoker Hx Recreational Drug Use: Yes Drugs: Cocaine, Heroin, Marijuana - Advance Directive Resuscitation Status: Full Code Family History Family History: Reviewed & Not Pertinent, CAD, CVA, DM, Hypertension Parental Family History Reviewed: Yes Children Family History Reviewed: Yes Sibling(s) Family History Reviewed.: Yes Medication/Allergy Home Medications: Ibuprofen [Motrin 800 mg Tablet] 800 mg PO Q8 PRN #20 tablet 12/23/16 Allergies/Adverse Reactions: cephalexin monohydrate [From Keflex] Allergy (Verified 11/01/16 19:06) Sulfa (Sulfonamide Antibiotics) Allergy (Verified 11/01/16 19:06) tramadol HCl [From Ultram] Adverse Reaction (Verified 11/01/16 19:06) SEIZURE Review of Systems ROS unobtainable: Due to mental status Physical Exam Vital Signs: Temp Pulse Resp BP Pulse Ox 97.4 F 69 15 112/69 100 09/17/17 06:47 09/17/17 06:47 09/17/17 06:47 09/17/17 06:47 09/17/17 06:47 Intake & Output 09/15/17 09/16/17 09/17/17 11:59 11:59 11:59 Intake Total 1000 Output Total 1000 Balance 0 Weight 56.7 kg General appearance: PRESENT: disheveled, mild distress. ABSENT: cooperative Head exam: PRESENT: atraumatic, normocephalic Eye exam: PRESENT: conjunctiva pink, EOMI, PERRLA. ABSENT: scleral icterus Ear exam: PRESENT: normal external ear exam Mouth exam: PRESENT: moist, tongue midline Neck exam: ABSENT: carotid bruit, JVD, lymphadenopathy, thyromegaly Respiratory exam: PRESENT: clear to auscultation nona. ABSENT: rales, rhonchi, wheezes Cardiovascular exam: PRESENT: RRR. ABSENT: diastolic murmur, rubs, systolic murmur Pulses: PRESENT: normal dorsalis pedis pul Vascular exam: PRESENT: normal capillary refill GI/Abdominal exam: PRESENT: normal bowel sounds, soft. ABSENT: distended, guarding, mass, organolmegaly, rebound, tenderness Rectal exam: PRESENT: deferred Extremities exam: PRESENT: full ROM. ABSENT: calf tenderness, clubbing, pedal edema Neurological exam: PRESENT: altered, CN II-XII grossly intact Psychiatric exam: PRESENT: unusual affect. ABSENT: homicidal ideation, suicidal ideation Focused psych exam: PRESENT: other - Sedated Skin exam: PRESENT: dry, intact, warm. ABSENT: cyanosis, rash Results Laboratory Results: 09/17/17 06:29 Urine Color YELLOW Urine Appearance SLIGHTLY-CLOUDY Urine pH 5.0 Ur Specific [place] 1.021 Urine Protein NEGATIVE Urine Glucose (UA) NEGATIVE Urine Ketones 20 H Urine Blood NEGATIVE Urine Nitrite NEGATIVE Ur Leukocyte Esterase NEGATIVE Urine WBC (Auto) 2 Urine RBC (Auto) 1 Assessment & Plan - Diagnosis (1) Acute renal failure Qualifiers: Acute renal failure type: unspecified Qualified Code(s): N17.9 - Acute kidney failure, unspecified Is this a current diagnosis for this admission?: Yes Plan: Secondary to rhabdomyolysis, IV fluid challenge, follow-up total CK and chemistry. (2) Rhabdomyolysis Is this a current diagnosis for this admission?: Yes Plan: IV fluid challenge, follow-up total CK and chemistry (3) Agitation Is this a current diagnosis for this admission?: Yes Plan: Benzodiazepine as needed, QT prolongation (4) Polysubstance abuse Is this a current diagnosis for this admission?: Yes Plan: Supportive care with benzodiazepine. Discharge planning for rehab consult
[2017-09-17 07:43] LABS: URINE BENZODIAZEPINES SCREEN UNCONFIRMED POSITIVE; URINE MARIJUANA (THC) SCREEN UNCONFIRMED POSITIVE
[2017-09-17 07:44] LABS: URINE BARBITURATES SCREEN UNCONFIRMED POSITIVE
[2017-09-17 08:09] LABS: ABSOLUTE BASOPHILS # (AUTO) 0.1 10^3/uL (0.0-0.2); ABSOLUTE EOSINOPHILS # (AUTO) 0.1 10^3/uL (0.0-0.6); ABSOLUTE LYMPHOCYTES (AUTO) 1.7 10^3/uL (0.5-4.7); ABSOLUTE MONOCYTES (AUTO) 1.2 10^3/uL (0.1-1.4); ABSOLUTE NEUT (AUTO) 5.7 10^3/uL (1.7-8.2); BASOPHILS % (AUTO) 0.9 % (0-2); EOSINOPHILS % (AUTO) 1.5 % (0-6); HEMATOCRIT 40.6 % (37.9-51.0); LYMPHOCYTES % (AUTO) 19.1 % (13-45); MEAN CORPUSCULAR HGB CONC 34.5 g/dL (32.0-36.0); MEAN CORPUSCULAR VOLUME 90 fl (80-97); MONOCYTES % (AUTO) 13.6 % (3-13); PLATELET COUNT 250 10^3/uL (150-450); RED BLOOD COUNT 4.52 10^6/uL (4.35-5.55); RED CELL DISTRIBUTION WIDTH 13.5 % (11.5-14.0); SEGMENTED NEUTROPHILS % (AUTO) 64.9 % (42-78); TOTAL CELLS COUNTED % (AUTO) 100 %; WHITE BLOOD COUNT 8.7 10^3/uL (4.0-10.5)
[2017-09-17 08:27] LABS: ALANINE AMINOTRANSFERASE 79 U/L (21-72); ALBUMIN 3.6 g/dL (3.5-5.0); ALKALINE PHOSPHATASE 67 U/L (38-126); ANION GAP 9 (5-19); ASPARTATE AMINO TRANSFERASE 87 U/L (17-59); BILIRUBIN,DIRECT 0.3 mg/dL (0.0-0.4); BLOOD UREA NITROGEN 36 mg/dL (7-20); CALCIUM 8.8 mg/dL (8.4-10.2); CARBON DIOXIDE 24 mmol/L (22-30); CHLORIDE 106 mmol/L (98-107); GLUCOSE 90 mg/dL (75-110); SODIUM 138.6 mmol/L (137-145); TOTAL PROTEIN 6.4 g/dL (6.3-8.2)
[2017-09-17 08:38] LABS: POTASSIUM 3.8 mmol/L (3.6-5.0)
[2017-09-17] MEDS: DOCUSATE SODIUM 100 MG CAPSULE PO SCH ×2 (09:23→17:21)
--- NOTE | 2017-09-17 14:48 | Progress Note ---
Provider Note Provider Note: His 27 years old male patient with history of multiple ER visits and frequent admission to this hospital for agitation and polysubstance abuse. During this presentation patient's found by EMS agitated combative after he took cocktails of amphetamine marijuana and cocaine. This morning I visited the patient but he was heavily sedated. I accept this patient and will be his primary attending.
[2017-09-18] MEDS ORDERED: DIPHENHYDRAMINE HCL 50 MG CAPSULE PO ONE (04:45)
[2017-09-18] MEDS: HEPARIN SOD (PORCINE) 5,000 UNIT/ML 1 ML SYRINGE SUBCUT SCH (06:07)
[2017-09-18] MEDS: DIAZEPAM 5 MG TABLET PO SCH (06:07)
[2017-09-18 06:32] LABS: ABSOLUTE BASOPHILS # (AUTO) 0.1 10^3/uL (0.0-0.2); ABSOLUTE EOSINOPHILS # (AUTO) 0.2 10^3/uL (0.0-0.6); ABSOLUTE LYMPHOCYTES (AUTO) 1.8 10^3/uL (0.5-4.7); ABSOLUTE NEUT (AUTO) 3.9 10^3/uL (1.7-8.2); BASOPHILS % (AUTO) 1.2 % (0-2); EOSINOPHILS % (AUTO) 3.3 % (0-6); HEMATOCRIT 36.2 % (37.9-51.0); HEMOGLOBIN 12.6 g/dL (13.5-17.0); LYMPHOCYTES % (AUTO) 25.5 % (13-45); MEAN CORPUSCULAR HEMOGLOBIN 31.5 pg (27.0-33.4); MEAN CORPUSCULAR HGB CONC 34.9 g/dL (32.0-36.0); MEAN CORPUSCULAR VOLUME 90 fl (80-97); MONOCYTES % (AUTO) 14.2 % (3-13); PLATELET COUNT 196 10^3/uL (150-450); RED BLOOD COUNT 4.01 10^6/uL (4.35-5.55); RED CELL DISTRIBUTION WIDTH 13.9 % (11.5-14.0); SEGMENTED NEUTROPHILS % (AUTO) 55.8 % (42-78); TOTAL CELLS COUNTED % (AUTO) 100 %
[2017-09-18 07:01] LABS: ALANINE AMINOTRANSFERASE 68 U/L (21-72); ALBUMIN 2.8 g/dL (3.5-5.0); ALKALINE PHOSPHATASE 54 U/L (38-126); ASPARTATE AMINO TRANSFERASE 69 U/L (17-59); BILIRUBIN,DIRECT 0.2 mg/dL (0.0-0.4); BILIRUBIN,TOTAL 0.4 mg/dL (0.2-1.3); CALCIUM 8.4 mg/dL (8.4-10.2); CREATINE KINASE 990 U/L (55-170); GLUCOSE 87 mg/dL (75-110); POTASSIUM 4.1 mmol/L (3.6-5.0); TOTAL PROTEIN 5.3 g/dL (6.3-8.2)
[2017-09-18 07:06] LABS: CARBON DIOXIDE 27 mmol/L (22-30); CHLORIDE 108 mmol/L (98-107); SODIUM 139.3 mmol/L (137-145)
[2017-09-18 07:19] LABS: ANION GAP 4 (5-19); BLOOD UREA NITROGEN 9 mg/dL (7-20)
--- NOTE | 2017-09-18 09:42 | PDOC DISCHARGE SUMMARY ---
General - Admit/Disc Date/PCP Admission Date/Primary Care Provider: 09/17/17 03:28 Discharge Date: 09/18/17 - Discharge Diagnosis (1) Acute renal failure Is this a current diagnosis for this admission?: Yes (2) Agitation Is this a current diagnosis for this admission?: Yes (3) Polysubstance abuse Is this a current diagnosis for this admission?: Yes (4) Rhabdomyolysis Is this a current diagnosis for this admission?: Yes - Additional Information Resuscitation Status: Full Code Discharge Diet: As Tolerated - 20 Discharge Activity: Activity As Tolerated Home Medications: Buprenorphine HCl/Naloxone HCl [Buprenorphin-Naloxon 8-2 mg Sl] 1 each SL DAILY 09/17/17 Ziprasidone HCl [Geodon 40 mg Capsule] 40 mg PO Q12 09/17/17 History of Present Illness History of Present Illness: JOSE ROY is a 27 year old male with history of polysubstance abuse of cocaine and methamphetamine, marijuana and heroin presenting with agitation and combativeness requiring sedation. He is found to have acute renal failure and rhabdomyolysis and referred to the hospitalist for admission. The patient is sedated and unable to provide meaningful history. Hospital Course Hospital Course: This is a 27 years old unfortunate young male patient, admitted in acute confusional state agitation and combativeness. His drug screen was positive for marijuana methamphetamine and cocaine. Of note patient has history of frequent ER visits and hospital admission for the same problem. Patient has been treated with IV hydration and sedation. This morning patient is awake alert oriented he is not agitated. I have a long discussion with him with regard the consequence of polysubstance abuse. I encouraged him to quit and remain sober. Unfortunately patient does not have any family or social support. Physical Exam Vital Signs: Temp Pulse Resp BP Pulse Ox 98.3 F 75 16 104/59 L 98 09/17/17 23:05 09/17/17 23:05 09/17/17 23:05 09/17/17 23:05 09/17/17 23:05 Intake & Output 09/17/17 09/18/17 09/19/17 06:59 06:59 06:59 Intake Total 1000 6274 Output Total 1000 350 Balance 0 5924 Weight 56.7 kg 58.2 kg General appearance: PRESENT: no acute distress, well-developed, well-nourished Head exam: PRESENT: atraumatic, normocephalic Ear exam: PRESENT: normal external ear exam Neck exam: ABSENT: carotid bruit, JVD, lymphadenopathy, thyromegaly Respiratory exam: PRESENT: clear to auscultation nona. ABSENT: rales, rhonchi, wheezes Cardiovascular exam: PRESENT: RRR. ABSENT: diastolic murmur, rubs, systolic murmur GI/Abdominal exam: PRESENT: normal bowel sounds, soft. ABSENT: distended, guarding, mass, organolmegaly, rebound, tenderness Neurological exam: PRESENT: alert, awake, oriented to person, oriented to place , oriented to time, oriented to situation, CN II-XII grossly intact. ABSENT: motor sensory deficit Psychiatric exam: PRESENT: appropriate affect, normal mood. ABSENT: homicidal ideation, suicidal ideation Results Laboratory Results: 09/18/17 06:08 09/18/17 06:08 09/18/17 09/18/17 06:08 06:08 WBC 7.0 RBC 4.01 L Hgb 12.6 L Hct 36.2 L MCV 90 MCH 31.5 MCHC 34.9 RDW 13.9 Plt Count 196 Seg Neutrophils % 55.8 Lymphocytes % 25.5 Monocytes % 14.2 H Eosinophils % 3.3 Basophils % 1.2 Absolute Neutrophils 3.9 Absolute Lymphocytes 1.8 Absolute Monocytes 1.0 Absolute Eosinophils 0.2 Absolute Basophils 0.1 Sodium 139.3 Potassium 4.1 Chloride 108 H Carbon Dioxide 27 Anion Gap 4 L BUN 9 D Creatinine 0.49 L Est GFR ( Amer) > 60 Est GFR (Non-Af Amer) > 60 Glucose 87 Calcium 8.4 Total Bilirubin 0.4 AST 69 H ALT 68 Alkaline Phosphatase 54 Total Protein 5.3 L Albumin 2.8 L 09/17/17 09/17/17 09/17/17 08:02 16:00 23:59 Creatine Kinase 1245 H 1102 H 980 H 09/18/17 06:08 Creatine Kinase 990 H Qualifiers - * PATIENT BEING DISCHARGED WITH ANY OF THE FOLLOWING DIAGNOSIS: No
[2017-09-18] MEDS: DOCUSATE SODIUM 100 MG CAPSULE PO SCH (10:06)
[2017-09-18 14:02] VITALS: BP 108/68
--- NOTE | 2017-09-18 14:02 | PSYCHOLOGICAL NOTE ---
Psych Note - Psych Note Psych Note: Reason for consult: SI Contact permission: unknown Patient is a 27 year old male admitted to hospitalist services for acute renal failure, rhabdomyolysis, agitation and polysubstance. A psychiatric consult was ordered due to SI. Patient denied SI, said he was looking forward to getting out, getting a cigarette and getting to appointment on Sunday (09/21/17) at a place in [place] he thought was called [facility] for Suboxone or Subutex. He stated he had been referred by [facility]. He said he is not allowed to see outpatient providers locally because they wont take his insurance. He stated I cant kill myself. He admitted to a past history of SI when he was age 16. When asked what he looks forward to he responded I don t look forward to anything, that way I dont get my hopes up, so I dont get let down and my feelings dont get hurt. Patient was alert and oriented. Mood was anxious with congruent affect as evidenced by inability to sit still and constantly moving. He denied current SI/ HI, admitted to history SI age 16 and was focused on ensuring he gets discharged in time to get to appointment Sunday for treatment (indicates future oriented thinking, goals, hop). He denied HI and this was not a presenting concern. He did not appear to be responding to internal stimuli as evidenced by fair eye contact, answering questions appropriately when addressed and carrying on dialogue conversation. Thought processes were linear and goal oriented. Conversational speech was quick in rate but not quite pressured and within normal limits for tone and prosody. Intellectual abilities are estimated to be average. Insight, judgment and impulse control are fair as evidenced by moving forward with SA course of treatment. Chart review indicated multiple ED visits for SA/[facility] from 2012 to present. [facility] has seem him numerous times for similar etiology. He has been provided with resources, linked to specific resources/programs and recommended for SA treatments each time. Attending nurse reported he made passive SI comments like he wants to . Diagnosis: Polysubstance Use 304.40 (F15.20) stimulant use disorder severe amphetamine type substance ( per patient report) 304.40(F14.20) stimulant use disorder severe Cocaine ( per patient report) 304.30 (F12.20) Cannabis Use Disorder, Moderate 305.50 (F11.10) Opioid Use Disorder, Mild 305.40 (F13.10) Anxiolytic (Benzo) and Sedative (Barbiturate) Impression/Plan: Patient is cleared from acute psychiatric services. He denied current SI/HI, he admitted saying he wanted to , denied having a plan, said he "can't kill himself" and was focused on getting to a place in [place] by Sunday called [facility] for Suboxone/Subutex treatment (future oriented thinking, hope) which he reported being referred to via [facility]. Discharge Planning has already been involved to provide detox/rehab referral information and outpatient resources. Patient has been seen by [facility] team numerous times previously, provided outpatient resources and linkage to services, he has poor follow through and even commented during this assessment that no providers locally will see him anymore. He has a history of polysubstance abuse, as well as current (UDS positive for Opiates, Barbiturates, Methamphetamine, Benzodiazepines and Cannabis). It is likely some of thoughts and feelings are associated with initial coming down from substances and withdrawal. He stated he needed a ride to [address] [facility] and stated it is a temporary living situation. Consulted with Dr. Martin regarding the management and care of patient. Attending Hospitalist made aware of recommendations.
== END 2017-09-18 14:32 | disposition home or self-care (01) | DRG 683 ==
LOC: ER 19:33 → EH 09-17 03:28 → OBSVTOIN 09-17 03:28 → 4N 09-17 06:46
PROVIDERS: ADMIT Internal Medicine; ATTEND Internal Medicine
PROC: 3E0F73Z Introduction of Anti-inflammatory into Respiratory Tract, Via Natural or Artificial Opening (ICD-10-PCS; principal; 2017-09-17)
DX: N17.9 Acute kidney failure, unspecified (principal); M62.82 Rhabdomyolysis; Z68.1 Body mass index [BMI] 19.9 or less, adult; Z78.1 Physical restraint status; R45.1 Restlessness and agitation; F90.9 Attention-deficit hyperactivity disorder, unspecified type; F31.9 Bipolar disorder, unspecified; F17.210 Nicotine dependence, cigarettes, uncomplicated; I45.81 Long QT syndrome; F15.10 Other stimulant abuse, uncomplicated; F14.10 Cocaine abuse, uncomplicated; F12.10 Cannabis abuse, uncomplicated; F11.10 Opioid abuse, uncomplicated; R63.6 Underweight; Z88.6 Allergy status to analgesic agent; Z88.1 Allergy status to other antibiotic agents; Z88.2 Allergy status to sulfonamides; Z82.3 Family history of stroke; Z83.3 Family history of diabetes mellitus; Z82.49 Family history of ischemic heart disease and other diseases of the circulatory system
CPT/HCPCS: 36415; 80053; 80307; 81001; 82550; 85025; 93005; 93010; 99285; J1630; J1644; J2250; J7030; J7120

== ENCOUNTER 2017-10-20 18:44 | Emergency (ER) | payer MEDICARE, MEDICAID ==
[2017-10-20] MEDS ORDERED: HALOPERIDOL LACTATE INJ 5 MG/1 ML VIAL IV ONE (18:49)
[2017-10-20] MEDS ORDERED: RINGERS SOLUTION,LACTATED 2,000 ML IV ONE (18:50)
[2017-10-20 18:55] LABS: ABSOLUTE BASOPHILS # (AUTO) 0.1 10^3/uL (0.0-0.2); ABSOLUTE LYMPHOCYTES (AUTO) 2.1 10^3/uL (0.5-4.7); ABSOLUTE MONOCYTES (AUTO) 1.7 10^3/uL (0.1-1.4); ABSOLUTE NEUT (AUTO) 10.1 10^3/uL (1.7-8.2); EOSINOPHILS % (AUTO) 0.2 % (0-6); HEMATOCRIT 43.5 % (37.9-51.0); HEMOGLOBIN 14.9 g/dL (13.5-17.0); LYMPHOCYTES % (AUTO) 14.9 % (13-45); MEAN CORPUSCULAR HEMOGLOBIN 31.3 pg (27.0-33.4); MEAN CORPUSCULAR HGB CONC 34.3 g/dL (32.0-36.0); MEAN CORPUSCULAR VOLUME 91 fl (80-97); MONOCYTES % (AUTO) 12.4 % (3-13); PLATELET COUNT 251 10^3/uL (150-450); RED BLOOD COUNT 4.77 10^6/uL (4.35-5.55); SEGMENTED NEUTROPHILS % (AUTO) 71.5 % (42-78); TOTAL CELLS COUNTED % (AUTO) 100 %; WHITE BLOOD COUNT 14.1 10^3/uL (4.0-10.5)
--- NOTE | 2017-10-20 19:00 | ER Document Report ---
ED General - General Chief Complaint: Overdose Stated Complaint: POSSIBLE OVERDOSE Time Seen by Provider: 10/20/17 18:49 Cannot obtain history due to: Intoxicated, Altered mental status Notes: Patient is a 27-year-old male well-known to me with a history of polysubstance abuse who presents by EMS after being found wandering through people's yards. Apparently EMS actually found the patient incidentally while he was walking around. He was noted to be confused, hot, and combative. He was sedated and transported to the emergency department. This is very similar to prior presentations. The patient is unable to provide meaningful history secondary to his intoxicated and delirious status. TRAVEL OUTSIDE OF THE [place] IN LAST 30 DAYS: No - Related Data Allergies/Adverse Reactions: cephalexin monohydrate [From Keflex] Allergy (Verified 11/01/16 19:06) Sulfa (Sulfonamide Antibiotics) Allergy (Verified 11/01/16 19:06) tramadol HCl [From Ultram] Adverse Reaction (Verified 11/01/16 19:06) SEIZURE Past Medical History - General Information source: Patient, Emergency Med Personnel - Social History Smoking Status: Current Every Day Smoker Frequency of alcohol use: Social Drug Abuse: Cocaine, Heroin, Methamphetamine, Other Lives with: Family Family History: Reviewed & Not Pertinent, CAD, CVA, DM, Hypertension Patient has suicidal ideation: No Patient has homicidal ideation: No Renal/ Medical History: Reports: Hx Hydrocele, Hx Kidney Stones. Denies: Hx Peritoneal Dialysis GI Medical History: Reports: Hx Hepatitis Musculoskeltal Medical History: Reports Hx Musculoskeletal Trauma Psychiatric Medical History: Reports: Hx Attention Deficit Hyperactivity Disorder, Hx Bipolar Disorder, Hx Depression, Hx Schizophrenia Infectious Medical History: Reports: Hx Hepatitis Past Surgical History: Reports: Hx Testicular Surgery - right hydrocele - Immunizations Immunizations up to date: Yes Hx Diphtheria, Pertussis, Tetanus Vaccination: Yes Review of Systems - Review of Systems -: Yes ROS unobtainable due to patient's medical condition Physical Exam - Vital signs Vitals: Resp BP 28 H 111/98 H 10/20/17 18:49 10/20/17 18:49 Interpretation: Hypertensive, Tachycardic Notes: PHYSICAL EXAMINATION: GENERAL: Agitated, flailing around in the bed, unable to be redirected HEAD: Atraumatic, normocephalic. EYES: Pupils 5 mm, extraocular movements intact, sclera anicteric, conjunctiva are normal. ENT: nares patent, oropharynx clear without exudates. Moderately dry mucous membranes. NECK: supple without lymphadenopathy LUNGS: Breath sounds clear to auscultation bilaterally and equal. No wheezes rales or rhonchi. HEART: Regular tachycardia without murmurs ABDOMEN: Soft, nontender, normoactive bowel sounds. No guarding, no rebound. No masses appreciated. EXTREMITIES: Normal range of motion, no pitting or edema. No cyanosis. NEUROLOGICAL: No focal neurological deficits. Moves all extremities spontaneously. PSYCH: Agitated, combative, screaming SKIN: Warm, Dry, normal turgor, no rashes or lesions noted. Course - Re-evaluation Re-evalutation: 10/20/17 18:58 Patient again presents today after taking methamphetamine, cocaine, and possibly bath salts per EMS again and extraordinary agitated delirium. I have seen Mr. Leo on at least 3 occasions for similar presentations. He has ready received 5 mg of intravenous Versed and 2 mg of intravenous Ativan without any significant improvement of his agitation. He is restless, thrashing around the bed, hyperthermic and tachycardic, unable to calm himself. He has unfortunately required physical restraints. Will administer 5 mg of haloperidol IV as this has been very successful with this patient in the past. I have also begun 2 L of lactated Ringer's wide open and he has already received 1 L of normal saline prior to presentation. When the patient is calm and able to be safe both towards himself and staff he will be released from restraints. He has been placed on lunchroom monitor. Standard psychiatric screening labs have been obtained. Will continue to reassess at regular intervals as patient has a history of requiring repeated doses of sedation and also becoming quite ill when he uses multiple stimulants together. 10/20/17 19:27 Patient is sedated, resting calmly, restraints will be removed. His tachycardia has dramatically improved currently at 104 bpm. His blood pressure is within acceptable limits at 106 on 68. Initial laboratories show mild acute kidney injury, no acute rhabdomyolysis at this time point. Will recheck in 4 hours as patient had dramatic worsening on his prior evaluation. 10/20/17 20:31 Patient continues to rest comfortably, appropriately sedated, heart rate 92, saturating 99% on room air. 10/21/17 03:06 Patient continues to rest comfortably well sedated but wakes easily. Repeat chemistries do not show any worsening of his renal function, only mild trend of his creatinine kinase. No further checks will be obtained. He is officially medically cleared for evaluation and disposition per psychiatry in the morning. - Vital Signs Vital signs: Temp Pulse Resp BP Pulse Ox 13 123/83 100 10/21/17 00:01 10/21/17 00:00 10/21/17 00:01 - Laboratory Result Diagrams: 10/20/17 18:47 10/20/17 22:50 Laboratory results interpreted by me: 10/20/17 10/20/17 10/20/17 18:47 18:47 22:50 WBC 14.1 H Absolute Neutrophils 10.1 H Absolute Monocytes 1.7 H Sodium 145.2 H Chloride 110 H BUN 37 H 30 H Creatinine 1.33 H Glucose 69 L ALT 85 H Creatine Kinase 367 H Salicylates < 1.0 L Acetaminophen < 10 L 10/20/17 22:50 WBC Absolute Neutrophils Absolute Monocytes Sodium Chloride BUN Creatinine Glucose ALT Creatine Kinase 456 H Salicylates Acetaminophen - EKG Interpretation by Me Additional EKG results interpreted by me: 10/21/17 03:07 Sinus tachycardia. Rate 153. No ST elevations or depressions. QTC is 454. Critical Care Note - Critical Care Note Total time excluding time spent on procedures (mins): 36 Comments: Critical care time spent obtaining history from patient or surrogate, development of treatment plan with patient or surrogate, evaluation of patient' s response to treatment, examination of patient, ordering and performing treatments and interventions, ordering and review of laboratory studies, re- evaluation of patient's condition, ordering and review of radiographic studies and review of old charts Discharge - Discharge Clinical Impression: Polysubstance abuse, Agitation, Delirium Condition: Fair
[2017-10-20 19:19] LABS: ALANINE AMINOTRANSFERASE 85 U/L (21-72); ALBUMIN 4.8 g/dL (3.5-5.0); ALKALINE PHOSPHATASE 93 U/L (38-126); ANION GAP 13 (5-19); ASPARTATE AMINO TRANSFERASE 46 U/L (17-59); BILIRUBIN,DIRECT 0.3 mg/dL (0.0-0.4); BILIRUBIN,TOTAL 0.8 mg/dL (0.2-1.3); BLOOD UREA NITROGEN 37 mg/dL (7-20); CALCIUM 9.5 mg/dL (8.4-10.2); CARBON DIOXIDE 26 mmol/L (22-30); CHLORIDE 106 mmol/L (98-107); CREATINE KINASE 367 U/L (55-170); GLUCOSE 69 mg/dL (75-110); POTASSIUM 4.4 mmol/L (3.6-5.0); SODIUM 145.2 mmol/L (137-145); TOTAL PROTEIN 8.1 g/dL (6.3-8.2)
[2017-10-20 19:20] LABS: ACETAMINOPHEN < 10 ug/mL (10-30); ALCOHOL < 10 mg/dL (NONE DETECTED); SALICYLATE < 1.0 mg/dL (2.0-20.0)
--- NOTE | 2017-10-20 22:54 | EKG REPORT ---
SEVERITY:- ABNORMAL ECG - SINUS TACHYCARDIA ABNORMAL T, CONSIDER ISCHEMIA, INFERIOR LEADS : Confirmed by: Maggy Avila MD 20-Oct-2017 22:53:49
[2017-10-20 23:27] LABS: ANION GAP 9 (5-19); BLOOD UREA NITROGEN 30 mg/dL (7-20); CALCIUM 9.1 mg/dL (8.4-10.2); CARBON DIOXIDE 23 mmol/L (22-30); CHLORIDE 110 mmol/L (98-107); GLUCOSE 80 mg/dL (75-110); POTASSIUM 4.2 mmol/L (3.6-5.0); SODIUM 141.8 mmol/L (137-145)
--- NOTE | 2017-10-21 10:06 | ER Document Report ---
Doctor's Note Notes: 10/21/17 10:06 The patient remains sleeping since the Haldol dosing yesterday evening. His lab work shows that he did develop some mild rhabdomyolysis. He received 2 L of LR when he came in yesterday evening. He will be given an additional liter of IV fluids as a precautionary measure. At this time the plan is to discharge him home when he wakes up.
[2017-10-21] MEDS ORDERED: DEXTROSE 5%-LACTATED RINGERS 1,000 ML IV ONE (10:07)
[2017-10-21 14:34] VITALS: BP 108/66
== END 2017-10-21 14:20 | disposition home or self-care (01) ==
LOC: ER 18:44
DX: F14.10 Cocaine abuse, uncomplicated (principal); F15.10 Other stimulant abuse, uncomplicated; F11.10 Opioid abuse, uncomplicated; F10.129 Alcohol abuse with intoxication, unspecified; F17.200 Nicotine dependence, unspecified, uncomplicated; R41.0 Disorientation, unspecified; M62.82 Rhabdomyolysis; R00.0 Tachycardia, unspecified; R50.9 Fever, unspecified; Z88.1 Allergy status to other antibiotic agents; Z88.2 Allergy status to sulfonamides; Z78.1 Physical restraint status
CPT/HCPCS: 93005; 99291; 96361; 96374; 36415; 80307 ×3; 82550; 85025; 80048; 80053; 93010; J1630; J7120

== ENCOUNTER 2017-11-03 20:37 | Emergency (ER) | payer MEDICARE, MEDICAID ==
[2017-11-03] MEDS ORDERED: NORMAL SALINE 1000 ML 1,000 ML IV ONE (21:26)
[2017-11-03] MEDS ORDERED: KETOROLAC TROMETHAMINE INJ/PF 30 MG/1 ML SDV IV ONE (21:27)
[2017-11-03] MEDS ORDERED: LIDOCAINE 5% (700 MG) TRANSDERMAL ADH..PATCH TP ONE (21:27)
--- NOTE | 2017-11-03 21:28 | ER Document Report ---
ED General - General Chief Complaint: Groin Pain Stated Complaint: GROIN PAIN Time Seen by Provider: 11/03/17 20:59 Notes: Patient is a 27-year-old male with a past medical history of polysubstance abuse who presents with 2 days of bilateral inguinal pain as well as bilateral flank pain worse on the right. He describes this as a stabbing, aching, constant pain. He reports a long-standing history of similar pain in the past and states "that is why he is here when because nobody will give me pain pills for this kind of stuff". He denies any hematuria, dysuria or testicular pain. He has been walking for several hours today but denies any trauma to the area. He does not have a general doctor. He denies any drug use for the past 2 days. No shortness of breath, hemoptysis, or syncope. TRAVEL OUTSIDE OF THE [place] IN LAST 30 DAYS: No - Related Data Allergies/Adverse Reactions: cephalexin monohydrate [From Keflex] Allergy (Verified 11/03/17 20:59) Sulfa (Sulfonamide Antibiotics) Allergy (Verified 11/03/17 20:59) tramadol HCl [From [employer]] Adverse Reaction (Verified 11/03/17 20:59) SEIZURE Past Medical History - General Information source: Patient - Social History Smoking Status: Current Every Day Smoker Frequency of alcohol use: None Drug Abuse: Cocaine, Heroin, Marijuana, Methamphetamine Lives with: Homeless Family History: Reviewed & Not Pertinent, CAD, CVA, DM, Hypertension Patient has suicidal ideation: No Patient has homicidal ideation: No Renal/ Medical History: Reports: Hx Hydrocele, Hx Kidney Stones. Denies: Hx Peritoneal Dialysis GI Medical History: Reports: Hx Hepatitis Musculoskeletal Medical History: Reports Hx Musculoskeletal Trauma Psychiatric Medical History: Reports: Hx Attention Deficit Hyperactivity Disorder, Hx Bipolar Disorder, Hx Depression, Hx Schizophrenia Infectious Medical History: Reports: Hx Hepatitis Past Surgical History: Reports: Hx Testicular Surgery - right hydrocele - Immunizations Immunizations up to date: Yes Hx Diphtheria, Pertussis, Tetanus Vaccination: Yes Review of Systems - Review of Systems Notes: Constitutional: Negative for fever. HENT: Negative for sore throat. Eyes: Negative for visual changes. Cardiovascular: Negative for chest pain. Respiratory: Negative for shortness of breath. Gastrointestinal: Positive for bilateral inguinal pain and bilateral flank pain Genitourinary: Negative for dysuria. Musculoskeletal: Negative for back pain. Skin: Negative for rash. Neurological: Negative for headaches, weakness or numbness. 10 point ROS negative except as marked above and in HPI. Physical Exam - Vital signs Vitals: Resp Pulse Ox 25 H 100 11/03/17 20:43 11/03/17 20:43 Interpretation: Tachycardic Notes: PHYSICAL EXAMINATION: GENERAL: Well-appearing, well-nourished and in no acute distress. HEAD: Atraumatic, normocephalic. EYES: Pupils equal round and reactive to light, extraocular movements intact, sclera anicteric, conjunctiva are normal. ENT: nares patent, oropharynx clear without exudates. Moist mucous membranes. NECK: Normal range of motion, supple without lymphadenopathy LUNGS: Breath sounds clear to auscultation bilaterally and equal. No wheezes rales or rhonchi. HEART: Regular rate and rhythm without murmurs ABDOMEN: Soft, nontender, normoactive bowel sounds. No guarding, no rebound. No masses appreciated. : Bilateral cremasteric reflex, no testicle tenderness, no epididymal tenderness. No penile or scrotal lesions. EXTREMITIES: Normal range of motion, no pitting or edema. No cyanosis. NEUROLOGICAL: No focal neurological deficits. Moves all extremities spontaneously and on command. PSYCH: Normal mood, normal affect. SKIN: Warm, Dry, normal turgor, no rashes or lesions noted. Course - Re-evaluation Re-evalutation: 11/03/17 21:27 Patient presents with bilateral inguinal pain as well as left flank pain. This is the first time I have ever met the patient when he is sober and he is much more pleasant and interactive. Highly intelligent on conversation. He has lymphadenopathy to the right inguinal crease although no palpable swelling or hernia. Testicular exam unremarkable with a positive cremasteric reflex bilaterally, no epididymal or testicular tenderness. Patient does have bilateral CVA tenderness again worse on the right. He reports a history of similar symptoms in the past and states that he came here post going to shoot up heroin. Will proceed with labs, urinalysis, CT without contrast and reassess. 11/04/17 00:[address] of the abdomen pelvis otherwise unremarkable. Patient's pain is improved. Heart rate has normalized. At this time will discharge with return precautions and follow-up recommendations. Verbal discharge instructions given a the bedside and opportunity for questions given. Medication warnings reviewed. Patient is in agreement with this plan and has verbalized understanding of return precautions and the need for primary care follow-up in the next 24-72 hours. - Vital Signs Vital signs: Temp Pulse Resp BP Pulse Ox 97.9 F 18 125/64 100 11/03/17 21:01 11/04/17 00:01 11/04/17 00:01 11/04/17 00:00 - Laboratory Result Diagrams: 11/03/17 20:44 11/03/17 20:44 Laboratory results interpreted by me: 11/03/17 11/03/17 20:44 20:44 RDW 14.2 H Sodium 145.4 H Calcium 10.7 H - Diagnostic Test Radiology reviewed: Reports reviewed Discharge - Discharge Clinical Impression: Inguinal pain of both sides, Right flank pain Condition: Good Disposition: HOME, SELF-CARE Additional Instructions: You have been seen in the Emergency Department (ED) for abdominal pain. Your evaluation did not identify a clear cause of your symptoms but was generally reassuring. Please follow up with your doctor as soon as possible regarding today's emergent visit and the symptoms that are bothering you. Return to the ED if your abdominal pain worsens or fails to improve, you develop bloody vomiting, bloody diarrhea, you are unable to tolerate fluids due to vomiting, fever greater than 101, or other symptoms that concern you.
[2017-11-03 21:38] LABS: ABSOLUTE BASOPHILS # (AUTO) 0.1 10^3/uL (0.0-0.2); ABSOLUTE LYMPHOCYTES (AUTO) 2.8 10^3/uL (0.5-4.7); ABSOLUTE MONOCYTES (AUTO) 1.1 10^3/uL (0.1-1.4); ABSOLUTE NEUT (AUTO) 6.2 10^3/uL (1.7-8.2); EOSINOPHILS % (AUTO) 0.2 % (0-6); HEMATOCRIT 43.6 % (37.9-51.0); HEMOGLOBIN 15.4 g/dL (13.5-17.0); LYMPHOCYTES % (AUTO) 27.3 % (13-45); MEAN CORPUSCULAR HEMOGLOBIN 32.1 pg (27.0-33.4); MEAN CORPUSCULAR HGB CONC 35.4 g/dL (32.0-36.0); MEAN CORPUSCULAR VOLUME 91 fl (80-97); MONOCYTES % (AUTO) 10.8 % (3-13); PLATELET COUNT 319 10^3/uL (150-450); RED CELL DISTRIBUTION WIDTH 14.2 % (11.5-14.0); SEGMENTED NEUTROPHILS % (AUTO) 60.7 % (42-78); TOTAL CELLS COUNTED % (AUTO) 100 %; WHITE BLOOD COUNT 10.2 10^3/uL (4.0-10.5)
[2017-11-03 21:42] LABS: ANION GAP 15 (5-19); BLOOD UREA NITROGEN 18 mg/dL (7-20); CALCIUM 10.7 mg/dL (8.4-10.2); CARBON DIOXIDE 27 mmol/L (22-30); CHLORIDE 103 mmol/L (98-107); GLUCOSE 101 mg/dL (75-110); POTASSIUM 3.9 mmol/L (3.6-5.0); SODIUM 145.4 mmol/L (137-145)
[2017-11-03 23:36] LABS: APPEARANCE,URINE SLIGHTLY-CLOUDY; BILIRUBIN,URINE NEGATIVE (NEGATIVE); COLOR,URINE YELLOW; GLUCOSE, URINE NEGATIVE (NEGATIVE); KETONES,URINE NEGATIVE (NEGATIVE); LEUKOCYTE ESTERASE,URINE NEGATIVE (NEGATIVE); NITRITE,URINE NEGATIVE (NEGATIVE); PROTEIN,URINE NEGATIVE (NEGATIVE); URINE SPECIFIC GRAVITY 1.014; UROBILINOGEN,URINE NEGATIVE mg/dL (<2.0)
--- NOTE | 2017-11-04 00:03 | RADIOLOGY REPORT (SQ) ---
CT Non Contrast Abdomen and Pelvis History: 27-year-old male with flank pain. Technique: Multiple axial images are performed without the use of IV contrast. Images are then reconstructed in the sagittal and coronal planes. This exam was performed according to our departmental dose-optimization program which includes use of Automated Exposure Control, adjustment of the mA and/or kV according to patient size and/or use of iterative reconstruction technique. Comparison: None. Findings: CT Abdomen: Lung Bases: Lung bases demonstrate minimal bibasilar atelectasis. There is no evidence of free air. Evaluation of solid organs is limited in this non contrast exam. Allowing for this limitation: Liver: The liver is within normal limits of a non contrast exam. Gallbladder: The gallbladder is within normal limits for the amount of distention. Common bile duct: The common bile duct appears within normal limits. Spleen: The spleen is within normal limits. Pancreas: The pancreas is within normal limits. Adrenal glands: The adrenal glands are grossly unremarkable. Stomach: The stomach is within normal limits for the amount of distention. Small Bowel: The small bowel measures within normal limits. Small bowel mesentery: Subcentimeter lymph nodes are seen in the small bowel mesentery. Appendix: Retrocecal appendix contains air measures within normal. Large Bowel: The large bowel is within normal. Retroperitoneum: Descending aorta measures within normal limits. Retroperitoneum does not demonstrate any abnormal lymphadenopathy. KIDNEYS: Right kidney: Right kidney is within normal limits of a non contrast exam. There is no evidence of obstructing stone. There is no evidence of hydronephrosis. Allowing for the limitations of volume averaging with overlying unopacified bowel, the right ureter appears within normal limits without evidence of obstructing stone. Left kidney: The left kidney is within normal limits for noncontrast exam. There is no evidence of obstructing stone. There is no evidence of hydronephrosis. Allowing for limitations of volume averaging with overlying unopacified bowel, the left ureter appears within normal limits without evidence of obstructing stone. Bladder: The bladder is adequately distended and otherwise unremarkable. Abdominal/Pelvic Wall: The abdominal wall and pelvic wall are grossly unremarkable. Free Fluid: There is no free fluid in the pelvis. : Evaluation of system is limited due to volume averaging with unopacified bowel. Bones: Osseous structures are within normal limits for age. Impression: No CT evidence for acute pathology within the abdomen or pelvis.
[2017-11-04 00:10] VITALS: BP 125/64
--- NOTE | 2017-11-04 08:22 | EKG REPORT ---
SEVERITY:- ABNORMAL ECG - SINUS TACHYCARDIA PROBABLE LEFT ATRIAL ABNORMALITY BORDERLINE T ABNORMALITIES, INFERIOR LEADS : Confirmed by: Maggy Avila MD 04-Nov-2017 08:21:45
== END 2017-11-04 00:39 | disposition home or self-care (01) ==
LOC: ER 20:37
DX: R10.30 Lower abdominal pain, unspecified (principal); R59.0 Localized enlarged lymph nodes; R10.9 Unspecified abdominal pain; F17.200 Nicotine dependence, unspecified, uncomplicated; F12.10 Cannabis abuse, uncomplicated; F11.10 Opioid abuse, uncomplicated; F14.10 Cocaine abuse, uncomplicated; F15.10 Other stimulant abuse, uncomplicated; Z87.438 Personal history of other diseases of male genital organs; Z87.442 Personal history of urinary calculi; Z88.1 Allergy status to other antibiotic agents; Z88.2 Allergy status to sulfonamides
CPT/HCPCS: 93005; 99284; 96361; 96374; 36415; 85025; 80048; 81001; 74176; 93010; J1885; J7030

== ENCOUNTER 2017-11-04 14:37 | Emergency (ER) | payer MEDICARE, MEDICAID ==
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
--- NOTE | 2017-11-04 15:59 | RADIOLOGY REPORT (SQ) ---
EXAM DESCRIPTION: ANKLE RIGHT COMPLETE COMPLETED DATE/TIME: 11/04/2017 3:50 pm REASON FOR STUDY: pain COMPARISON: None. NUMBER OF VIEWS: Three views. TECHNIQUE: AP, lateral, and oblique radiographic images acquired of the right ankle. LIMITATIONS: None. FINDINGS: MINERALIZATION: Normal. BONES: No acute fracture or dislocation. No worrisome bone lesions. JOINTS: No effusions. SOFT TISSUES: Mild medial soft tissue swelling. A linear hyperdensity projecting in the region of th e superficial soft tissues of the lateral heel may represent retained radiopaque foreign body versus debris adherent to the skin. OTHER: No other significant finding. IMPRESSION: No evidence of acute osseous injury. Mild medial soft tissue swelling and foreign body projecting in the region of the lateral heel. TECHNICAL DOCUMENTATION: JOB ID: [id number]- All Rights Reserved Reading location - IP/workstation name: [email or web address]
[2017-11-04] MEDS ORDERED: CLINDAMYCIN HCL 150 MG CAPSULE PO ONE (16:13)
[2017-11-04] MEDS ORDERED: BENZTROPINE MESYLATE INJ 2 MG/2 ML AMPULE IM ONE (16:45)
[2017-11-04] MEDS: HALOPERIDOL LACTATE INJ 5 MG/1 ML VIAL IM SCH ×2 (17:25→22:27)
[2017-11-04 17:53] LABS: ALANINE AMINOTRANSFERASE 97 U/L (21-72); ALBUMIN 5.2 g/dL (3.5-5.0); ALKALINE PHOSPHATASE 75 U/L (38-126); ANION GAP 16 (5-19); ASPARTATE AMINO TRANSFERASE 68 U/L (17-59); BILIRUBIN,DIRECT 0.3 mg/dL (0.0-0.4); BILIRUBIN,TOTAL 1.2 mg/dL (0.2-1.3); BLOOD UREA NITROGEN 20 mg/dL (7-20); CALCIUM 10.5 mg/dL (8.4-10.2); CARBON DIOXIDE 25 mmol/L (22-30); CHLORIDE 104 mmol/L (98-107); GLUCOSE 61 mg/dL (75-110); HEMATOCRIT 43.5 % (37.9-51.0); MEAN CORPUSCULAR HEMOGLOBIN 31.3 pg (27.0-33.4); MEAN CORPUSCULAR HGB CONC 34.5 g/dL (32.0-36.0); MEAN CORPUSCULAR VOLUME 91 fl (80-97); PLATELET COUNT 337 10^3/uL (150-450); RED BLOOD COUNT 4.79 10^6/uL (4.35-5.55); SODIUM 145.2 mmol/L (137-145); TOTAL PROTEIN 8.9 g/dL (6.3-8.2)
--- NOTE | 2017-11-04 17:57 | ER Document Report ---
ED General - General Chief Complaint: Ankle Pain Stated Complaint: ANKLE PAIN Time Seen by Provider: 11/04/17 15:12 Mode of Arrival: Ambulatory Notes: 27-year-old male presents emergency department with complaints of right ankle pain that started today. Patient does not know how he injured his ankle. There are abrasions on his right lower extremity and right ankle. R medial malleolus is where the patient has most of the pain. Patient states that he was walking through some [place] and thinks maybe that's how he got all the abrasions. Patient appears intoxicated. He admits to using heroin and methamphetamine today. He denies injecting heroin into his ankle. Patient appeared agitated in triage and began to talk about how he wrote the Bible. He does have a history of schizophrenia. Patient then told staff that he wanted to kill himself. There was concern that the patient was unfit to be discharged from the ED as he's under the influence of heroin and methamphetamine. IVC papers completed. Dr. Martin evaluated the patient. Recommended Haldol 10 mg IM every 6 hours, Cogentin 1 mg every 8 hours. We will give clindamycin for skin infection. TRAVEL OUTSIDE OF THE [place] IN LAST 30 DAYS: No - HPI Onset: Just prior to arrival Onset/Duration: Gradual Quality of pain: Achy Severity: Mild Associated symptoms: None Exacerbated by: Denies Relieved by: Denies Similar symptoms previously: No Recently seen / treated by doctor: No - Related Data Allergies/Adverse Reactions: cephalexin monohydrate [From Keflex] Allergy (Verified 11/03/17 20:59) Sulfa (Sulfonamide Antibiotics) Allergy (Verified 11/03/17 20:59) tramadol HCl [From Ultram] Adverse Reaction (Verified 11/03/17 20:59) SEIZURE Past Medical History - General Information source: Patient - Social History Smoking Status: Current Every Day Smoker Cigarette use (# per day): Yes - 5 Chew tobacco use (# tins/day): No Frequency of alcohol use: Occasional Drug Abuse: Heroin, Other Lives with: Other Family History: Reviewed & Not Pertinent, CAD, CVA, DM, Hypertension Patient has suicidal ideation: No Patient has homicidal ideation: No Renal/ Medical History: Reports: Hx Hydrocele, Hx Kidney Stones. Denies: Hx Peritoneal Dialysis GI Medical History: Reports: Hx Hepatitis Musculoskeletal Medical History: Reports Hx Musculoskeletal Trauma Psychiatric Medical History: Reports: Hx Attention Deficit Hyperactivity Disorder, Hx Bipolar Disorder, Hx Depression, Hx Schizophrenia Infectious Medical History: Reports: Hx Hepatitis Past Surgical History: Reports: Hx Testicular Surgery - right hydrocele - Immunizations Immunizations up to date: Yes Hx Diphtheria, Pertussis, Tetanus Vaccination: Yes Review of Systems - Review of Systems Constitutional: No symptoms reported EENT: No symptoms reported Cardiovascular: No symptoms reported Respiratory: No symptoms reported Gastrointestinal: No symptoms reported Genitourinary: No symptoms reported Male Genitourinary: No symptoms reported Musculoskeletal: Joint pain Skin: No symptoms reported Hematologic/Lymphatic: No symptoms reported Neurological/Psychological: No symptoms reported -: Yes All other systems reviewed and negative Physical Exam - Vital signs Vitals: Temp Pulse Resp BP Pulse Ox 98.4 F 129 H 18 138/94 H 98 11/04/17 14:53 11/04/17 14:53 11/04/17 14:53 11/04/17 14:53 11/04/17 14:53 Interpretation: Normal, Tachycardic - Notes Notes: PHYSICAL EXAMINATION: GENERAL: Intoxicated. HEAD: Atraumatic, normocephalic. EYES: Pupils equal round and reactive to light, extraocular movements intact, sclera anicteric, conjunctiva are normal. ENT: Nares patent, oropharynx clear without exudates. Moist mucous membranes. NECK: Normal range of motion, supple without lymphadenopathy LUNGS: Breath sounds clear to auscultation bilaterally and equal. No wheezes rales or rhonchi. HEART: Regular rate and rhythm without murmurs ABDOMEN: Soft, nontender, nondistended abdomen. No guarding, no rebound. No masses appreciated. Musculoskeletal: Normal range of motion, no pitting or edema. No cyanosis. 2+ DP/PT pulses NEUROLOGICAL: Cranial nerves grossly intact. Normal speech, normal gait. Normal sensory, motor exams PSYCH: Aggressive. Restraints placed. Suicidal ideations. No homicidal ideations. SKIN: Superficial abrasions noted to the right lower extremity and right foot. Course - Re-evaluation Re-evalutation: 11/04/17 22:29 Labs obtained. WBC elevated. XR of ankle is read by radiologist as having a foreign body to the heel. No abrasions, lacerations, or tenderness to palpation of the heel. Repeat XR is read as normal. Patient hypotensive on re-exam. 1L of fluids ordered. Will hold haldol until after fluids administered and BP rechecked. Patient currently acting appropriately. 11/05/17 00:04 Patient signed out at end of shift. - Vital Signs Vital signs: Temp Pulse Resp BP Pulse Ox 97 F L 89 16 90/50 L 99 11/04/17 22:00 11/04/17 22:00 11/04/17 22:00 11/04/17 22:00 11/04/17 22:00 - Laboratory Result Diagrams: 11/04/17 17:10 11/04/17 17:10 Laboratory results interpreted by me: 11/04/17 11/04/17 17:10 17:10 WBC 26.1 H D Abs Neuts (Manual) 20.1 H Abs Monocytes (Manual) 1.6 H Abs Basophils (Manual) 0.3 H Sodium 145.2 H Glucose 61 L Calcium 10.5 H AST 68 H ALT 97 H Total Protein 8.9 H Albumin 5.2 H Acetaminophen < 10 L - EKG Interpretation by Me Additional EKG results interpreted by me: 11/04/17 19:07 EKG: Ventricular rate 90, MT interval 160, QRS duration 96, QTc 480, normal sinus rhythm, borderline prolonged QT. Discharge - Discharge Clinical Impression: Polysubstance abuse Cellulitis Qualifiers: Site of cellulitis: other site Qualified Code(s): L03.818 - Cellulitis of other sites Condition: Good Instructions: Abrasions ([facility]), Cellulitis ([facility]), Drug Toxicity ([facility]), Sprained Ankle ([facility]) Additional Instructions: Follow up with your physician tomorrow for further care or return to the ED IMMEDIATELY if symptoms worsen or new concerns occur. If you cannot afford to follow up with your primary care physician a list of low cost clinics have been provided at the end of your discharge papers as well. Prescriptions: Clindamycin HCl 600 mg PO Q6H #80 capsule Forms: Elevated Blood Pressure, Smoking Cessation Education
[2017-11-04 17:58] LABS: ACETAMINOPHEN < 10 ug/mL (10-30); ALCOHOL < 10 mg/dL (NONE DETECTED)
[2017-11-04] MEDS: CLINDAMYCIN 600 MG/D5W RTU 600 MG/50 ML RTUPB IV SCH (18:20)
[2017-11-04 18:21] LABS: WHITE BLOOD COUNT 26.1 10^3/uL (4.0-10.5)
[2017-11-04 18:26] LABS: ABSOLUTE LYMPHOCYTES# (MANUAL) 4.2 10^3/uL (0.5-4.7); ABSOLUTE MONOCYTES # (MANUAL) 1.6 10^3/uL (0.1-1.4); ABSOLUTE NEUTROPHILS# (MANUAL) 20.1 10^3/uL (1.7-8.2); BASOPHILS % (MANUAL) 1 % (0-2); EOSINOPHILS % (MANUAL) 0 % (0-6); LYMPHOCYTES % (MANUAL) 16 % (13-45); MONOCYTES % (MANUAL) 6 % (3-13); SEGMENTED NEUTROPHILS % (MAN) 77 % (42-78); TOTAL CELLS COUNTED 100
[2017-11-04 18:27] LABS: ANISOCYTOSIS SLIGHT; PLATELET COMMENT ADEQUATE
--- NOTE | 2017-11-04 18:51 | RADIOLOGY REPORT (SQ) ---
EXAM DESCRIPTION: ANKLE RIGHT COMPLETE COMPLETED DATE/TIME: 11/04/2017 6:34 pm REASON FOR STUDY: ankle pain COMPARISON: None. NUMBER OF VIEWS: Three views. TECHNIQUE: AP, lateral, and oblique radiographic images acquired of the right ankle. LIMITATIONS: None. FINDINGS: MINERALIZATION: Normal. BONES: No acute fracture or dislocation. No worrisome bone lesions. JOINTS: No effusions. SOFT TISSUES: No soft tissue swelling. No foreign body. OTHER: No other significant finding. IMPRESSION: NO RADIOGRAPHIC EVIDENCE OF ACUTE INJURY. TECHNICAL DOCUMENTATION: JOB ID: [id number] [id number] 2010 [email or web address]- All Rights Reserved Reading location - IP/workstation name: [email or web address]
[2017-11-04] MEDS ORDERED: NORMAL SALINE 1000 ML 1,000 ML IV ONE (22:26)
[2017-11-05] MEDS ORDERED: NORMAL SALINE 1000 ML 1,000 ML IV ONE ×2 (00:17→02:59)
--- NOTE | 2017-11-05 00:48 | EKG REPORT ---
SEVERITY:- BORDERLINE ECG - SINUS RHYTHM BORDERLINE PROLONGED QT INTERVAL : Confirmed by: Maggy Avila MD 05-Nov-2017 00:48:13
[2017-11-05 04:18] LABS: ABSOLUTE BASOPHILS # (AUTO) 0.1 10^3/uL (0.0-0.2); ABSOLUTE EOSINOPHILS # (AUTO) 0.2 10^3/uL (0.0-0.6); ABSOLUTE LYMPHOCYTES (AUTO) 2.4 10^3/uL (0.5-4.7); ABSOLUTE MONOCYTES (AUTO) 0.8 10^3/uL (0.1-1.4); ABSOLUTE NEUT (AUTO) 5.8 10^3/uL (1.7-8.2); EOSINOPHILS % (AUTO) 1.8 % (0-6); HEMATOCRIT 37.6 % (37.9-51.0); LYMPHOCYTES % (AUTO) 25.9 % (13-45); MEAN CORPUSCULAR HEMOGLOBIN 31.8 pg (27.0-33.4); MEAN CORPUSCULAR HGB CONC 34.6 g/dL (32.0-36.0); MEAN CORPUSCULAR VOLUME 92 fl (80-97); PLATELET COUNT 231 10^3/uL (150-450); RED BLOOD COUNT 4.09 10^6/uL (4.35-5.55); RED CELL DISTRIBUTION WIDTH 13.9 % (11.5-14.0); SEGMENTED NEUTROPHILS % (AUTO) 62.3 % (42-78); TOTAL CELLS COUNTED % (AUTO) 100 %; WHITE BLOOD COUNT 9.3 10^3/uL (4.0-10.5)
[2017-11-05 04:36] LABS: ANION GAP 9 (5-19); BLOOD UREA NITROGEN 18 mg/dL (7-20); CALCIUM 8.3 mg/dL (8.4-10.2); CARBON DIOXIDE 21 mmol/L (22-30); CHLORIDE 113 mmol/L (98-107); GLUCOSE 70 mg/dL (75-110); POTASSIUM 3.9 mmol/L (3.6-5.0); SODIUM 142.9 mmol/L (137-145)
[2017-11-05] MEDS: HALOPERIDOL LACTATE INJ 5 MG/1 ML VIAL IM SCH ×2 (05:14→11:20)
[2017-11-05 07:00] LABS: APPEARANCE,URINE SLIGHTLY-CLOUDY; BILIRUBIN,URINE NEGATIVE (NEGATIVE); COLOR,URINE YELLOW; GLUCOSE, URINE NEGATIVE (NEGATIVE); KETONES,URINE 20 mg/dL (NEGATIVE); LEUKOCYTE ESTERASE,URINE NEGATIVE (NEGATIVE); NITRITE,URINE NEGATIVE (NEGATIVE); PROTEIN,URINE NEGATIVE (NEGATIVE); URINE SPECIFIC GRAVITY 1.021; UROBILINOGEN,URINE NEGATIVE mg/dL (<2.0)
[2017-11-05 07:13] LABS: URINE BARBITURATES SCREEN NEGATIVE; URINE BENZODIAZEPINES SCREEN NEGATIVE; URINE COCAINE SCREEN NEGATIVE; URINE MARIJUANA (THC) SCREEN UNCONFIRMED POSITIVE; URINE METHADONE SCREEN NEGATIVE; URINE PHENCYCLIDINE SCREEN NEGATIVE
[2017-11-05] MEDS: CLINDAMYCIN 600 MG/D5W RTU 600 MG/50 ML RTUPB IV SCH ×2 (09:09)
--- NOTE | 2017-11-05 09:57 | ER Document Report ---
Doctor's Note Notes: 11/05/17 09:56 As the rounding physician for our psychiatric patients, I have reviewed the chart, vitals, lab work. Patient has been examined and noted to be resting comfortably, blood pressure while sleeping was 90s over 50s, the patient has been refusing IV fluids but did receive IV antibiotics. I am awaiting mental health in put. I reviewed the images note a foreign body at the heel but the pain and redness is at the ankle itself, patient's white count had improved significantly from the initial lab work, I believe patient is stable for discharge with oral antibiotics
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
[2017-11-05 13:53] VITALS: BP 110/69
== END 2017-11-05 13:54 | disposition home or self-care (01) ==
LOC: ER 14:37
DX: L03.818 Cellulitis of other sites (principal); F19.10 Other psychoactive substance abuse, uncomplicated; S90.511A Abrasion, right ankle, initial encounter; M25.571 Pain in right ankle and joints of right foot; X58.XXXA Exposure to other specified factors, initial encounter; F17.210 Nicotine dependence, cigarettes, uncomplicated
CPT/HCPCS: 93005; 99285; 96372; 96361; 96365; 96366; 36415; 87040; 80307 ×4; 85025; 80048; 80053; 81001; 73610; 93010; J0515; J1630; J7030 ×2

== ENCOUNTER 2017-11-29 04:54 | Emergency (ER) | payer MEDICARE, MEDICAID ==
--- NOTE | 2017-11-29 06:00 | ER Document Report ---
ED Medical Screen (RME) - General Chief Complaint: Flank Pain Stated Complaint: FLANK PAIN Time Seen by Provider: 11/29/17 05:03 Mode of Arrival: Medic Information source: Patient Notes: Patient is a 27-year-old male who is well-known to our facility who presents with chief complaint of flank pain. Patient reports to EMS that he was recently admitted to [facility] for "kidney problems" however he left AMA so that he can go do some heroin. Patient now complains of bilateral flank pain. Patient was initially hypotensive upon EMS arrival with a blood pressure of 80/60 however his blood pressure did come up to 120/62 after a 500 cc IV fluid bolus. Patient is currently alert and oriented however he does appear to be under the influence of some type of drugs. Exam: Patient appears disheveled yelling out obscenities. Lung sounds are clear bilaterally. Abdomen soft, nontender. I have greeted and performed a rapid initial assessment of this patient. A comprehensive ED assessment and evaluation of the patient, analysis of test results and completion of the medical decision making process will be conducted by additional ED providers. Dictation of this chart was performed using voice recognition software; therefore, there may be some unintended grammatical errors. TRAVEL OUTSIDE OF THE [place] IN LAST 30 DAYS: No - Related Data Allergies/Adverse Reactions: cephalexin monohydrate [From Keflex] Allergy (Verified 11/03/17 20:59) Sulfa (Sulfonamide Antibiotics) Allergy (Verified 11/03/17 20:59) tramadol HCl [From Ultram] Adverse Reaction (Verified 11/03/17 20:59) SEIZURE Past Medical History Renal/ Medical History: Reports: Hx Hydrocele, Hx Kidney Stones. Denies: Hx Peritoneal Dialysis GI Medical History: Reports: Hx Hepatitis Musculoskeltal Medical History: Reports Hx Musculoskeletal Trauma Psychiatric Medical History: Reports: Hx Attention Deficit Hyperactivity Disorder, Hx Bipolar Disorder, Hx Depression, Hx Schizophrenia Infectious Medical History: Reports: Hx Hepatitis Past Surgical History: Reports: Hx Testicular Surgery - right hydrocele - Immunizations Immunizations up to date: Yes Hx Diphtheria, Pertussis, Tetanus Vaccination: Yes Course - Laboratory Result Diagrams: 11/29/17 05:10 11/29/17 05:10
[2017-11-29 06:07] LABS: ABSOLUTE BASOPHILS # (AUTO) 0.1 10^3/uL (0.0-0.2); ABSOLUTE MONOCYTES (AUTO) 1.7 10^3/uL (0.1-1.4); ABSOLUTE NEUT (AUTO) 11.8 10^3/uL (1.7-8.2); BASOPHILS % (AUTO) 0.6 % (0-2); HEMATOCRIT 46.6 % (37.9-51.0); HEMOGLOBIN 16.4 g/dL (13.5-17.0); LYMPHOCYTES % (AUTO) 17.9 % (13-45); MEAN CORPUSCULAR HEMOGLOBIN 31.6 pg (27.0-33.4); MEAN CORPUSCULAR HGB CONC 35.1 g/dL (32.0-36.0); MEAN CORPUSCULAR VOLUME 90 fl (80-97); MONOCYTES % (AUTO) 10.3 % (3-13); PLATELET COUNT 332 10^3/uL (150-450); RED BLOOD COUNT 5.18 10^6/uL (4.35-5.55); RED CELL DISTRIBUTION WIDTH 13.6 % (11.5-14.0); SEGMENTED NEUTROPHILS % (AUTO) 71.2 % (42-78); TOTAL CELLS COUNTED % (AUTO) 100 %; WHITE BLOOD COUNT 16.6 10^3/uL (4.0-10.5)
[2017-11-29 06:16] LABS: ALANINE AMINOTRANSFERASE 97 U/L (21-72); ALBUMIN 5.2 g/dL (3.5-5.0); ALKALINE PHOSPHATASE 86 U/L (38-126); ASPARTATE AMINO TRANSFERASE 53 U/L (17-59); BILIRUBIN,DIRECT 0.5 mg/dL (0.0-0.4); BILIRUBIN,TOTAL 1.1 mg/dL (0.2-1.3); BLOOD UREA NITROGEN 49 mg/dL (7-20); CHLORIDE 96 mmol/L (98-107); GLUCOSE 88 mg/dL (75-110); LIPASE 55.3 U/L (23-300); POTASSIUM 4.7 mmol/L (3.6-5.0); TOTAL PROTEIN 8.9 g/dL (6.3-8.2)
[2017-11-29 06:21] LABS: CARBON DIOXIDE 24 mmol/L (22-30); SODIUM 141.6 mmol/L (137-145)
[2017-11-29 06:22] LABS: ANION GAP 22 (5-19)
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
[2017-11-29] MEDS ORDERED: NORMAL SALINE 1000 ML 1,000 ML IV ONE ×2 (06:34→07:23)
[2017-11-29 07:16] LABS: APPEARANCE,URINE CLOUDY; BILIRUBIN,URINE NEGATIVE (NEGATIVE); COLOR,URINE AMBER; GLUCOSE, URINE NEGATIVE (NEGATIVE); KETONES,URINE 20 mg/dL (NEGATIVE); LEUKOCYTE ESTERASE,URINE NEGATIVE (NEGATIVE); NITRITE,URINE NEGATIVE (NEGATIVE); PROTEIN,URINE 100 mg/dL (NEGATIVE); URINE SPECIFIC GRAVITY 1.025
[2017-11-29 10:07] LABS: CREATINE KINASE 169 U/L (55-170)
== END 2017-11-29 08:05 | disposition left against medical advice (07) ==
LOC: ER 04:54
DX: I95.9 Hypotension, unspecified (principal); E86.0 Dehydration; N28.9 Disorder of kidney and ureter, unspecified; R45.1 Restlessness and agitation; R10.9 Unspecified abdominal pain; Z88.2 Allergy status to sulfonamides
CPT/HCPCS: 36415; 80053; 81001; 82550; 83690; 85025; 99281

== ENCOUNTER 2018-05-22 06:54 | Emergency (ER) | payer MEDICARE, MEDICAID ==
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
[2018-05-22 10:24] VITALS: BP 151/93
== END 2018-05-22 10:00 | disposition home or self-care (01) ==
LOC: ER 06:54
DX: S01.112A Laceration without foreign body of left eyelid and periocular area, initial encounter (principal); Y09 Assault by unspecified means; F11.10 Opioid abuse, uncomplicated; F12.10 Cannabis abuse, uncomplicated; F15.10 Other stimulant abuse, uncomplicated; F17.200 Nicotine dependence, unspecified, uncomplicated; R00.0 Tachycardia, unspecified; N23 Unspecified renal colic; Z88.1 Allergy status to other antibiotic agents; Z88.2 Allergy status to sulfonamides
CPT/HCPCS: 70450; 72125; 99284

== ENCOUNTER 2018-05-22 14:16 | Emergency (ER) | payer MEDICARE, MEDICAID ==
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
[2018-05-22 15:13] LABS: ABSOLUTE BASOPHILS # (AUTO) 0.1 10^3/uL (0.0-0.2); ABSOLUTE LYMPHOCYTES (AUTO) 1.4 10^3/uL (0.5-4.7); ABSOLUTE MONOCYTES (AUTO) 1.9 10^3/uL (0.1-1.4); ABSOLUTE NEUT (AUTO) 15.3 10^3/uL (1.7-8.2); BASOPHILS % (AUTO) 0.6 % (0-2); HEMOGLOBIN 15.7 g/dL (13.5-17.0); LYMPHOCYTES % (AUTO) 7.4 % (13-45); MEAN CORPUSCULAR HEMOGLOBIN 31.6 pg (27.0-33.4); MEAN CORPUSCULAR VOLUME 90 fl (80-97); MONOCYTES % (AUTO) 10.1 % (3-13); PLATELET COUNT 256 10^3/uL (150-450); RED BLOOD COUNT 4.99 10^6/uL (4.35-5.55); RED CELL DISTRIBUTION WIDTH 12.7 % (11.5-14.0); SEGMENTED NEUTROPHILS % (AUTO) 81.9 % (42-78); TOTAL CELLS COUNTED % (AUTO) 100 %; WHITE BLOOD COUNT 18.8 10^3/uL (4.0-10.5)
[2018-05-22 15:24] LABS: COLOR,URINE YELLOW
[2018-05-22 15:25] LABS: APPEARANCE,URINE CLEAR; BILIRUBIN,URINE NEGATIVE (NEGATIVE); GLUCOSE, URINE NEGATIVE (NEGATIVE); KETONES,URINE 300 mg/dL (NEGATIVE); LEUKOCYTE ESTERASE,URINE NEGATIVE (NEGATIVE); NITRITE,URINE NEGATIVE (NEGATIVE); PROTEIN,URINE 30 mg/dL (NEGATIVE)
[2018-05-22 15:26] LABS: ADD MANUAL MICROSCOPIC YES
[2018-05-22 15:28] LABS: WBC,URINE 0-1 /HPF
[2018-05-22 15:33] LABS: ALANINE AMINOTRANSFERASE 101 U/L (21-72); ALBUMIN 5.3 g/dL (3.5-5.0); ALKALINE PHOSPHATASE 98 U/L (38-126); ANION GAP 16 (5-19); ASPARTATE AMINO TRANSFERASE 69 U/L (17-59); BILIRUBIN,DIRECT 0.5 mg/dL (0.0-0.4); BILIRUBIN,TOTAL 1.4 mg/dL (0.2-1.3); BLOOD UREA NITROGEN 26 mg/dL (7-20); CALCIUM 9.9 mg/dL (8.4-10.2); CARBON DIOXIDE 23 mmol/L (22-30); CHLORIDE 104 mmol/L (98-107); GLUCOSE 73 mg/dL (75-110); POTASSIUM 4.7 mmol/L (3.6-5.0); SODIUM 142.7 mmol/L (137-145); TOTAL PROTEIN 8.4 g/dL (6.3-8.2)
[2018-05-22 15:34] LABS: ACETAMINOPHEN < 10 ug/mL (10-30); ALCOHOL < 10 mg/dL (NONE DETECTED); SALICYLATE < 1.0 mg/dL (2.0-20.0)
[2018-05-22 15:39] LABS: URINE BARBITURATES SCREEN NEGATIVE; URINE BENZODIAZEPINES SCREEN NEGATIVE; URINE COCAINE SCREEN NEGATIVE; URINE METHADONE SCREEN NEGATIVE; URINE PHENCYCLIDINE SCREEN NEGATIVE
[2018-05-22 15:52] LABS: URINE MARIJUANA (THC) SCREEN UNCONFIRMED POSITIVE
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
[2018-05-22] MEDS ORDERED: MAG HYDROX/AL HYDROX/SIMETH SUSP 30 ML UDCUP PO ONE (17:47)
[2018-05-22 18:19] LABS: CREATINE KINASE 1369 U/L (55-170)
[2018-05-22] MEDS ORDERED: THIAMINE HCL 100 MG in NORMAL SALINE 50 ML IV ONE (18:24)
[2018-05-22] MEDS ORDERED: NORMAL SALINE 1000 ML 1,000 ML IV ONE (18:25)
[2018-05-22 18:32] LABS: CREATINE KINASE MB 6.36 ng/mL (<4.55)
[2018-05-22 18:33] LABS: TROPONIN I < 0.012 ng/mL
--- NOTE | 2018-05-22 18:48 | EKG REPORT ---
SEVERITY:- OTHERWISE NORMAL ECG - SINUS TACHYCARDIA : Confirmed by: Checo Hoffmann MD 22-May-2018 18:47:32
[2018-05-22] MEDS ORDERED: DEXTROSE 5%-NORMAL SALINE 1,000 ML IV ONE (20:26)
[2018-05-22] MEDS ORDERED: HALOPERIDOL LACTATE INJ 5 MG/1 ML VIAL IV ONE (22:12)
[2018-05-22] MEDS ORDERED: DIPHENHYDRAMINE HCL 50 MG/ML VIAL IV ONE (22:12)
[2018-05-22] MEDS ORDERED: IBUPROFEN 800 MG TABLET PO ONE (22:29)
[2018-05-22] MEDS ORDERED: DIPHENHYDRAMINE HCL 25 MG CAPSULE PO ONE (22:29)
[2018-05-23 06:24] VITALS: BP 98/66
[2018-05-23 07:56] LABS: ABSOLUTE BASOPHILS # (AUTO) 0.1 10^3/uL (0.0-0.2); ABSOLUTE EOSINOPHILS # (AUTO) 0.3 10^3/uL (0.0-0.6); ABSOLUTE MONOCYTES (AUTO) 1.1 10^3/uL (0.1-1.4); ABSOLUTE NEUT (AUTO) 4.9 10^3/uL (1.7-8.2); BASOPHILS % (AUTO) 0.6 % (0-2); EOSINOPHILS % (AUTO) 3.4 % (0-6); HEMATOCRIT 40.2 % (37.9-51.0); HEMOGLOBIN 14.3 g/dL (13.5-17.0); MEAN CORPUSCULAR HEMOGLOBIN 31.7 pg (27.0-33.4); MEAN CORPUSCULAR HGB CONC 35.5 g/dL (32.0-36.0); MEAN CORPUSCULAR VOLUME 89 fl (80-97); PLATELET COUNT 197 10^3/uL (150-450); RED CELL DISTRIBUTION WIDTH 12.8 % (11.5-14.0); TOTAL CELLS COUNTED % (AUTO) 100 %; WHITE BLOOD COUNT 8.3 10^3/uL (4.0-10.5)
[2018-05-23 08:13] LABS: ALANINE AMINOTRANSFERASE 70 U/L (21-72); ALBUMIN 3.6 g/dL (3.5-5.0); ALKALINE PHOSPHATASE 63 U/L (38-126); ANION GAP 6 (5-19); ASPARTATE AMINO TRANSFERASE 58 U/L (17-59); BILIRUBIN,DIRECT 0.1 mg/dL (0.0-0.4); BILIRUBIN,TOTAL 1.4 mg/dL (0.2-1.3); BLOOD UREA NITROGEN 15 mg/dL (7-20); CALCIUM 8.5 mg/dL (8.4-10.2); CARBON DIOXIDE 24 mmol/L (22-30); CHLORIDE 109 mmol/L (98-107); CREATINE KINASE 1029 U/L (55-170); GLUCOSE 88 mg/dL (75-110); SODIUM 139.3 mmol/L (137-145); TOTAL PROTEIN 6.3 g/dL (6.3-8.2)
[2018-05-23 08:22] LABS: POTASSIUM 3.7 mmol/L (3.6-5.0)
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
== END 2018-05-23 09:37 | disposition home or self-care (01) ==
LOC: ER 14:16
DX: F12.19 Cannabis abuse with unspecified cannabis-induced disorder (principal); F11.10 Opioid abuse, uncomplicated; F15.10 Other stimulant abuse, uncomplicated; F23 Brief psychotic disorder; M62.82 Rhabdomyolysis; R00.0 Tachycardia, unspecified; D72.829 Elevated white blood cell count, unspecified; R45.851 Suicidal ideations; F17.200 Nicotine dependence, unspecified, uncomplicated; S00.83XA Contusion of other part of head, initial encounter; Y09 Assault by unspecified means; Z88.1 Allergy status to other antibiotic agents; Z88.2 Allergy status to sulfonamides
CPT/HCPCS: 93005; 99285; 96360; 96361; 36415; 82553; 80307 ×4; 82550; 85025; 80053; 81001; 84484; 93010; A9270 ×2; J3411; J7030